=== PATIENT | female | born 1980 | race Two or more races ===

== ENCOUNTER 2019-10-20 21:37 | Inpatient (IN) | payer SELFPAY ==
[~2019-10-20] VITALS: Ht 158.8 cm; Wt 86.3 kg
[2019-10-20] MEDS ORDERED: IPRATRPIUM/ALBUTEROL 0.5/2.5MG 3 ML NEBU. NEB ONE (22:15)
[2019-10-20 22:20] LABS: BASO % 0 % (0-3); EOS % 0 % (0-3); HEMATOCRIT 37.8 % (36.0-47.0); LYMPH # 0.7 x10^3/uL (1.0-4.8); LYMPH % 12 % (24-48); MEAN CORPUSCULAR HEMOGLOBIN 31 pg (25-35); MEAN CORPUSCULAR HGB CONC 34 g/dL (31-37); MEAN CORPUSCULAR VOLUME 90 fL (79-100); MONO # 0.6 x10^3/uL (0.0-1.1); MONO % 9 % (0-9); NEUT # 4.8 x10^3/uL (1.8-7.7); NEUT % 79 % (31-73); PLATELET COUNT 172 x10^3/uL (140-400); RED BLOOD COUNT 4.21 x10^6/uL (3.50-5.40); RED CELL DISTRIBUTION WIDTH 13.2 % (11.5-14.5); WHITE BLOOD COUNT 6.1 x10^3/uL (4.0-11.0)
[2019-10-20 22:29] LABS: CALCIUM 8.4 mg/dL (8.5-10.1); CREATININE 0.8 mg/dL (0.6-1.0); GFR 80.7; POTASSIUM 3.5 mmol/L (3.5-5.1)
[2019-10-20 22:30] LABS: BILIRUBIN,URINE NEGATIVE (NEG); CLARITY,URINE CLEAR; COLOR,URINE YELLOW; NITRITE,URINE NEGATIVE (NEG); PROTEIN,URINE 30 mg/dL (NEG-TRACE)
[2019-10-20] MEDS ORDERED: ACETAMINOPHEN 500 MG TABLET PO ONE (22:30)
[2019-10-20 22:33] LABS: ALBUMIN 2.9 g/dL (3.4-5.0); ALBUMIN/GLOBULIN RATIO 0.7 (1.0-1.7); TOTAL BILIRUBIN 0.3 mg/dL (0.2-1.0); TOTAL PROTEIN 7.2 g/dL (6.4-8.2)
[2019-10-20 22:40] LABS: RBC,URINE >40 /HPF (0-2)
[2019-10-20 22:41] LABS: BACTERIA,URINE MODERATE /HPF (0-FEW); SQUAMOUS EPITHELIAL CELL,UR MANY /LPF
--- NOTE | 2019-10-20 23:31 | PHYS DOC ---
Past Medical History Past Medical History: No Pertinent History Additional Past Medical Histor: DENIES ANY MEDICAL HX Smoking Status: Never Smoker Alcohol Use: None General Adult EDM: Chief Complaint: SHORTNESS OF BREATH HPI: HPI: Patient is a 39 year old female who presents with report of shortness of breath. Patient was just recently diagnosed with COVID-19. Patient indicates that she has been developing worsening shortness of breath and upon arrival, patient's oxygen saturation noted to be 89-90%. Patient is complaining shortness of breath. Patient indicates that symptoms have been present for 2 weeks now. Sh e states that she continues to run fever and symptoms are only getting worse.[] Review of Systems: Review of Systems: Constitutional: Complains of fever and chills. [] Respiratory: Complains of cough and shortness of breath. [] Cardiovascular: Denies chest pain or edema. [] GI: Denies abdominal pain, nausea, vomiting or diarrhea. [] Musculoskeletal: [place] of body aches/pain. [] Integument: Denies rash. [] Neurologic: Denies headache, focal weakness or sensory changes. [] Heart Score: Risk Factors: Risk Factors: DM, Current or recent (<one month) smoker, HTN, HLP, family history of CAD, obesity. Risk Scores: Score 0 - 3: 2.5% MACE over next 6 weeks - Discharge Home Score 4 - 6: 20.3% MACE over next 6 weeks - Admit for Clinical Observation Score 7 - 10: 72.7% MACE over next 6 weeks - Early Invasive Strategies Current Medications: Current Medications Medications (Trade) Dose Ordered Sig/[facility] Start Time Stop Time Status Last Admin Dose Admin Acetaminophen (Tylenol) 1,000 mg 1X ONCE 10/20/19 22:30 10/20/19 22:31 DC Albuterol/ Ipratropium (Duoneb) 3 ml 1X ONCE 10/20/19 22:15 10/20/19 22:16 DC Allergies: Allergies: Allergies Coded Allergies Type Severity Reaction Last Updated Verified Unable to Assess 10/20/19 No Physical Exam: PE: Constitutional: Well developed, well nourished, no acute distress, non-toxic appearance. [] HENT: Normocephalic, atraumatic, bilateral external ears normal, oropharynx moist, no oral exudates, nose normal. [] Eyes: PERRLA, EOMI, conjunctiva normal, no discharge. [] Neck: Normal range of motion, no tenderness, supple. [] Cardiovascular: Regular rate and rhythm[] Lungs & Thorax: Bilateral breath sounds clear to auscultation [] Abdomen: Bowel sounds normal, soft, no tenderness. [] Skin: Warm, dry, no erythema, no rash. [] Extremities: No tenderness, no cyanosis, no clubbing, ROM intact. [] Neurologic: Alert and oriented X 3, no focal deficits noted. [] Current Patient Data: Labs: Laboratory Tests Test 10/20/19 22:05 10/20/19 22:22 10/20/19 22:26 White Blood Count 6.1 x10^3/uL (4.0-11.0) Red Blood Count 4.21 x10^6/uL (3.50-5.40) Hemoglobin 13.0 g/dL (12.0-15.5) Hematocrit 37.8 % (36.0-47.0) Mean Corpuscular Volume 90 fL (79-100) Mean Corpuscular Hemoglobin 31 pg (25-35) Mean Corpuscular Hemoglobin Concent 34 g/dL (31-37) Red Cell Distribution Width 13.2 % (11.5-14.5) Platelet Count 172 x10^3/uL (140-400) Neutrophils (%) (Auto) 79 % (31-73) H Lymphocytes (%) (Auto) 12 % (24-48) L Monocytes (%) (Auto) 9 % (0-9) Eosinophils (%) (Auto) 0 % (0-3) Basophils (%) (Auto) 0 % (0-3) Neutrophils # (Auto) 4.8 x10^3/uL (1.8-7.7) Lymphocytes # (Auto) 0.7 x10^3/uL (1.0-4.8) L Monocytes # (Auto) 0.6 x10^3/uL (0.0-1.1) Eosinophils # (Auto) 0.0 x10^3/uL (0.0-0.7) Basophils # (Auto) 0.0 x10^3/uL (0.0-0.2) Sodium Level 134 mmol/L (136-145) L Potassium Level 3.5 mmol/L (3.5-5.1) Chloride Level 100 mmol/L (98-107) Carbon Dioxide Level 24 mmol/L (21-32) Anion Gap 10 (6-14) Blood Urea Nitrogen 12 mg/dL (7-20) Creatinine 0.8 mg/dL (0.6-1.0) Estimated GFR (Cockcroft-Gault) 80.7 BUN/Creatinine Ratio 15 (6-20) Glucose Level 117 mg/dL (70-99) H Calcium Level 8.4 mg/dL (8.5-10.1) L Total Bilirubin 0.3 mg/dL (0.2-1.0) Aspartate Amino Transferase (AST) 93 U/L (15-37) H Alanine Aminotransferase (ALT) 111 U/L (14-59) H Alkaline Phosphatase 65 U/L (46-116) Troponin I Quantitative < 0.017 ng/mL (0.000-0.055) WR-Dlo-G-Type Natriuretic Peptide 34 pg/mL (0-124) Total Protein 7.2 g/dL (6.4-8.2) Albumin 2.9 g/dL (3.4-5.0) L Albumin/Globulin Ratio 0.7 (1.0-1.7) L Urine Collection Type Void Urine Color Yellow Urine Clarity Clear Urine pH 6.0 (<5.0-8.0) Urine Specific [place] 1.025 (1.000-1.030) Urine Protein 30 mg/dL (NEG-TRACE) Urine Glucose (UA) Negative mg/dL (NEG) Urine Ketones (Stick) Trace mg/dL (NEG) Urine Blood Large (NEG) Urine Nitrite Negative (NEG) Urine Bilirubin Negative (NEG) Urine Urobilinogen Dipstick 1.0 mg/dL (0.2 mg/dL) Urine Leukocyte Esterase Negative (NEG) Urine RBC >40 /HPF (0-2) Urine WBC 1-4 /HPF (0-4) Urine Squamous Epithelial Cells Many /LPF Urine Bacteria Moderate /HPF (0-FEW) Urine Mucus Slight /LPF POC Urine HCG, Qualitative Hcg negative (Negative) Laboratory Tests 10/20/19 22:05 Laboratory Tests 10/20/19 22:05 Vital Signs: Vital Signs Date Time Temp Pulse Resp B/P (MAP) Pulse Ox O2 Delivery O2 Flow Rate FiO2 10/20/19 22:23 102.3 78 24 104/56 (72) 94 Nasal Cannula 2.0 102.3 EKG: EKG: [] Radiology/Procedures: Radiology/Procedures: [] Impression: Chest x-ray demonstrates bilateral patchy infiltrates consistent with pneumonia Course & Med Decision Making: Course & Med Decision Making Pertinent Labs and Imaging studies reviewed. (See chart for details) [] Dragon Disclaimer: Dragon Disclaimer: This electronic medical record was generated, in whole or in part, using a voice recognition dictation system. COVID-19 Patient Risks: Age 65 or older: No Sign of co-morbidity: No Exp to person + for COVID: Yes Exp to PUI: Yes Travel from affected area: No Lower respiratory symptoms: Yes Fever: Yes Other: Yes (tested positive for COVID) PPE Use: Full PPE with N95 mask or PAPR: Yes Departure Departure Impression: Primary Impression: Pneumonia Qualified Codes: J18.9 - Pneumonia, unspecified organism Additional Impressions: Hypoxemia COVID-19 virus infection Disposition: ADMITTED INPATIENT Admitting Physician: STACY Condition: IMPROVED Referrals: UNKNOWN PCP NAME (PCP) BREANNA RAYMUNDO Jr. DO October 20, 2019 23:30
[2019-10-20] MEDS ORDERED: MORPHINE SULFATE 4 MG/ML VIAL. IV PRN (23:45)
[2019-10-20] MEDS ORDERED: ONDANSETRON PF 4 MG/2 ML VIAL. IV PRN (23:45)
[2019-10-21] VITALS (7 sets, daily range): BP systolic 94–130; BP diastolic 44–60
--- NOTE | 2019-10-21 02:34 | RAD ---
PORTABLE CHEST 1V Clinical Indication: Shortness of breath Comparison: None. Findings: The cardiomediastinal silhouette is normal. There are right lower lung airspace opacities. There are left lower lung airspace opacities. There is no pneumothorax. No pleural effusion is appreciated. No acute bone abnormality. IMPRESSION: There are bibasilar airspace opacities that may be pneumonia or atelectasis. Electronically signed by: Rachid Zazueta MD (10/21/2019 2:31 AM) [id number]
[2019-10-21] MEDS: ACETAMINOPHEN 325 MG TABLET. PO PRN ×5 (03:53→20:01)
[2019-10-21 04:48] LABS: BASO % 0 % (0-3); EOS % 0 % (0-3); HEMATOCRIT 38.2 % (36.0-47.0); HEMOGLOBIN 12.7 g/dL (12.0-15.5); LYMPH # 0.9 x10^3/uL (1.0-4.8); LYMPH % 13 % (24-48); MEAN CORPUSCULAR HEMOGLOBIN 30 pg (25-35); MEAN CORPUSCULAR HGB CONC 33 g/dL (31-37); MEAN CORPUSCULAR VOLUME 90 fL (79-100); MONO # 0.6 x10^3/uL (0.0-1.1); MONO % 10 % (0-9); NEUT # 5.1 x10^3/uL (1.8-7.7); NEUT % 77 % (31-73); PLATELET COUNT 171 x10^3/uL (140-400); RED BLOOD COUNT 4.25 x10^6/uL (3.50-5.40); RED CELL DISTRIBUTION WIDTH 13.2 % (11.5-14.5); WHITE BLOOD COUNT 6.7 x10^3/uL (4.0-11.0)
[2019-10-21 05:03] LABS: CREATININE 0.8 mg/dL (0.6-1.0); GFR 80.7; POTASSIUM 3.6 mmol/L (3.5-5.1)
[2019-10-21] MEDS ORDERED: IPRATRPIUM/ALBUTEROL 0.5/2.5MG 3 ML NEBU. NEB PRN (07:15)
[2019-10-21] MEDS ORDERED: ALBUTEROL SULFATE 2.5 MG/3 ML NEBU. NEB PRN (07:15)
[2019-10-21] MEDS ORDERED: IPRATRPIUM/ALBUTEROL 0.5/2.5MG 3 ML NEBU. NEB SCH (08:00)
--- NOTE | 2019-10-21 08:05 | EKG ---
[facility] [address] [place] [address] Test Date: 2019-10-20 Test Time: 22:16:57 Pat Name: SURJIT MOLINA Department: Room: 2 Gender: F Furniture Upholsterer: : 1980 Requested By: BREANNA RAYMUNDO Order Number: [id number] Reading MD: Jermain Blsa Measurements Intervals [place] Rate: 81 P: 4 MS: 136 QRS: -13 QRSD: 82 T: 4 QT: 346 QTc: 407 Interpretive Statements SINUS RHYTHM LEFTWARD AXIS T ABNORMALITY IN ANTERIOR LEADS ABNORMAL ECG RI6.01 No previous ECG available for comparison Electronically Signed On 10-21-2019 9:00:25 CDT by Jermain Blas
[2019-10-21] MEDS ORDERED: POTASSIUM CHLORIDE 20 MEQ TABLET.ER. PO ONE (09:15)
[2019-10-21] MEDS ORDERED: traMADol 50 MG TABLET PO PRN (09:15)
--- NOTE | 2019-10-21 09:18 | PDOC1 ---
History and Physical Date of Admission Date of Admission DATE: 10/21/19 TIME: 09:15 Source Source: Chart review, Patient History of Present Illness History of Present Illness Renetta Montague is a 39 year old female who presents with report of shortness of breath, and was previously diagnosed with COVID-19. Patient indicates that she has been developing worsening shortness of breath and upon arrival, cough and dyspena and weakness and myalgia she was hypoxic in the ER and has been on supplemental oxygen overnight Patient is complaining shortness of breath. Patient indicates that symptoms have been present for 2 weeks now. Social History Smoke: No ALCOHOL: none Drugs: None Current Problem List Problem List Problems Medical Problems: (1) COVID-19 virus infection Status: Acute (2) Hypoxemia Status: Acute (3) Pneumonia Status: Acute Current Medications Current Medications Current Medications Albuterol/ Ipratropium (Duoneb) 3 ml 1X ONCE NEB ; Start 10/20/19 at 22:15; Stop 10/20/19 at 22:16; Status DC Acetaminophen (Tylenol) 1,000 mg 1X ONCE PO ; Start 10/20/19 at 22:30; Stop 10/20/19 at 22:31; Status DC Ondansetron HCl (Zofran) 4 mg PRN Q8HRS PRN IV NAUSEA/VOMITING; Start 10/20/19 at 23:45; Stop 10/21/19 at 23:44 Morphine Sulfate (Morphine Sulfate) 4 mg PRN Q2HR PRN IV PAIN; Start 10/20/19 at 23:45; Stop 10/21/19 at 23:44 Acetaminophen (Tylenol) 650 mg PRN Q4HRS PRN PO FEVER > 100.3'F Last administered on 10/21/19at 08:23; Start 10/20/19 at 23:45; Stop 10/21/19 at 23:44 Albuterol/ Ipratropium (Duoneb) 3 ml RTQID NEB ; Start 10/21/19 at 08:00; Stop 10/21/19 at 07:13; Status DC Albuterol/ Ipratropium (Duoneb) 3 ml PRN QID PRN NEB SHORTNESS OF BREATH; Start 10/21/19 at 07:15; Stop 10/22/19 at 07:14; Status UNV Albuterol Sulfate (Ventolin Neb Soln) 2.5 mg PRN QID PRN NEB SHORTNESS OF BREATH; Start 10/21/19 at 07:15 Active Scripts Active Reported No Known Medications Prior To Admisstion (Info) Each 1 Each 1X Allergies Allergies: Coded Allergies: Unable to Assess (Unverified , 10/20/19) ROS General: YES: Chills, Fatigue, Malaise, Appetite PSYCHOLOGICAL ROS: YES: Sleep disturbances; No: Anxiety, Behavioral Disorder, Concentration difficultie, Decreased libido, Depression, Disorientation, Hallucinations, Mood Swings, Obsessive thoughts, Physical abuse, Sexual abuse, Suicidal ideation, Other Eyes: No Blurry vision, No Decreased vision, No Double vision, No Dry eyes, No Excessive tearing, No Eye Pain, No Itchy Eyes, No Loss of vision, No Photophobia, No Scotomata, No Uses contacts, No Uses glasses, No Other HEENT: YES: Heacaches; No: Visual Changes, Hearing change, Nasal congestion, Nasal discharge, Oral lesions, Sinus pain, Sore Throat, Epistaxis, Sneezing, Snoring, Tinnitus, Vertigo, Vocal changes, Other Cardiovascular: No Chest Pain, No Palpitations, No Orthopnea, No Paroxysmal Noc. Dyspnea, No Edema, No Lt Headedness, No Other Gastrointestinal: Yes Nausea, Yes Abdominal Pain; No Vomiting, No Diarrhea, No Constipation, No Melena, No Hematochezia, No Other Genitourinary: No Frequency, No Incontinence, No Hematuria, No Retention, No Discharge, No Urgency, No Pain, No Flank Pain, No Other, No , No , No , No , No , No , No Musculoskeletal: Yes Gait Disturbance, Yes Muscular Weakness, Yes Pain In:; No Joint Pain, No Joint Stiffness, No Joint Swelling, No Muscle Pain, No Swelling In:, No Other Neurological: No Behavorial Changes, No Bowel/Bladder ControlChng, No Confusion, No Dizziness, No Gait Disturbance, No Headaches, No Impaired Coord/balance, No Memory Loss, No Numbness/Tingling, No Seizures, No Speech Problems, No Tremors, No Visual Changes, No Weakness, No Other Skin: Yes Dry Skin; No Eczema, No Hair Changes, No Lumps, No Mole Changes, No Mottling, No Nail Changes, No Pruritus, No Rash, No Skin Lesion Changes, No Other, No Acne Physical Exam General: Alert, Oriented X3, Cooperative, mild distress HEENT: Atraumatic, PERRLA, EOMI, Mucous membr. moist/pink Lungs: Normal air movement Abdomen: Normal bowel sounds, Soft Extremities: No edema Skin: No rashes, No breakdown Neuro: Normal tone Psych/Mental Status: Mood NL, Other (lethargic, ) Vitals Vitals Vital Signs Date Time Temp Pulse Resp B/P (MAP) Pulse Ox O2 Delivery O2 Flow Rate FiO2 10/21/19 08:03 96 Nasal Cannula 2.0 10/21/19 03:50 100.5 72 20 107/60 (76) 100.5 Labs Labs Laboratory Tests Test 10/20/19 22:05 10/20/19 22:22 10/20/19 22:26 10/21/19 04:20 White Blood Count 6.1 x10^3/uL (4.0-11.0) 6.7 x10^3/uL (4.0-11.0) Red Blood Count 4.21 x10^6/uL (3.50-5.40) 4.25 x10^6/uL (3.50-5.40) Hemoglobin 13.0 g/dL (12.0-15.5) 12.7 g/dL (12.0-15.5) Hematocrit 37.8 % (36.0-47.0) 38.2 % (36.0-47.0) Mean Corpuscular Volume 90 fL (79-100) 90 fL (79-100) Mean Corpuscular Hemoglobin 31 pg (25-35) 30 pg (25-35) Mean Corpuscular Hemoglobin Concent 34 g/dL (31-37) 33 g/dL (31-37) Red Cell Distribution Width 13.2 % (11.5-14.5) 13.2 % (11.5-14.5) Platelet Count 172 x10^3/uL (140-400) 171 x10^3/uL (140-400) Neutrophils (%) (Auto) 79 % (31-73) 77 % (31-73) Lymphocytes (%) (Auto) 12 % (24-48) 13 % (24-48) Monocytes (%) (Auto) 9 % (0-9) 10 % (0-9) Eosinophils (%) (Auto) 0 % (0-3) 0 % (0-3) Basophils (%) (Auto) 0 % (0-3) 0 % (0-3) Neutrophils # (Auto) 4.8 x10^3/uL (1.8-7.7) 5.1 x10^3/uL (1.8-7.7) Lymphocytes # (Auto) 0.7 x10^3/uL (1.0-4.8) 0.9 x10^3/uL (1.0-4.8) Monocytes # (Auto) 0.6 x10^3/uL (0.0-1.1) 0.6 x10^3/uL (0.0-1.1) Eosinophils # (Auto) 0.0 x10^3/uL (0.0-0.7) 0.0 x10^3/uL (0.0-0.7) Basophils # (Auto) 0.0 x10^3/uL (0.0-0.2) 0.0 x10^3/uL (0.0-0.2) Sodium Level 134 mmol/L (136-145) 135 mmol/L (136-145) Potassium Level 3.5 mmol/L (3.5-5.1) 3.6 mmol/L (3.5-5.1) Chloride Level 100 mmol/L (98-107) 100 mmol/L (98-107) Carbon Dioxide Level 24 mmol/L (21-32) 26 mmol/L (21-32) Anion Gap 10 (6-14) 9 (6-14) Blood Urea Nitrogen 12 mg/dL (7-20) 10 mg/dL (7-20) Creatinine 0.8 mg/dL (0.6-1.0) 0.8 mg/dL (0.6-1.0) Estimated GFR (Cockcroft-Gault) 80.7 80.7 BUN/Creatinine Ratio 15 (6-20) Glucose Level 117 mg/dL (70-99) 99 mg/dL (70-99) Calcium Level 8.4 mg/dL (8.5-10.1) 8.0 mg/dL (8.5-10.1) Total Bilirubin 0.3 mg/dL (0.2-1.0) Aspartate Amino Transf (AST/SGOT) 93 U/L (15-37) Alanine Aminotransferase (ALT/SGPT) 111 U/L (14-59) Alkaline Phosphatase 65 U/L (46-116) Troponin I Quantitative < 0.017 ng/mL (0.000-0.055) QF-Qkx-R-Type Natriuretic Peptide 34 pg/mL (0-124) Total Protein 7.2 g/dL (6.4-8.2) Albumin 2.9 g/dL (3.4-5.0) Albumin/Globulin Ratio 0.7 (1.0-1.7) Urine Collection Type Void Urine Color Yellow Urine Clarity Clear Urine pH 6.0 (<5.0-8.0) Urine Specific [place] 1.025 (1.000-1.030) Urine Protein 30 mg/dL (NEG-TRACE) Urine Glucose (UA) Negative mg/dL (NEG) Urine Ketones (Stick) Trace mg/dL (NEG) Urine Blood Large (NEG) Urine Nitrite Negative (NEG) Urine Bilirubin Negative (NEG) Urine Urobilinogen Dipstick 1.0 mg/dL (0.2 mg/dL) Urine Leukocyte Esterase Negative (NEG) Urine RBC >40 /HPF (0-2) Urine WBC 1-4 /HPF (0-4) Urine Squamous Epithelial Cells Many /LPF Urine Bacteria Moderate /HPF (0-FEW) Urine Mucus Slight /LPF Bedside Urine HCG, Qualitative Hcg negative (Negative) Laboratory Tests Test 10/20/19 22:05 10/20/19 22:22 10/20/19 22:26 10/21/19 04:20 White Blood Count 6.1 x10^3/uL (4.0-11.0) 6.7 x10^3/uL (4.0-11.0) Red Blood Count 4.21 x10^6/uL (3.50-5.40) 4.25 x10^6/uL (3.50-5.40) Hemoglobin 13.0 g/dL (12.0-15.5) 12.7 g/dL (12.0-15.5) Hematocrit 37.8 % (36.0-47.0) 38.2 % (36.0-47.0) Mean Corpuscular Volume 90 fL (79-100) 90 fL (79-100) Mean Corpuscular Hemoglobin 31 pg (25-35) 30 pg (25-35) Mean Corpuscular Hemoglobin Concent 34 g/dL (31-37) 33 g/dL (31-37) Red Cell Distribution Width 13.2 % (11.5-14.5) 13.2 % (11.5-14.5) Platelet Count 172 x10^3/uL (140-400) 171 x10^3/uL (140-400) Neutrophils (%) (Auto) 79 % (31-73) 77 % (31-73) Lymphocytes (%) (Auto) 12 % (24-48) 13 % (24-48) Monocytes (%) (Auto) 9 % (0-9) 10 % (0-9) Eosinophils (%) (Auto) 0 % (0-3) 0 % (0-3) Basophils (%) (Auto) 0 % (0-3) 0 % (0-3) Neutrophils # (Auto) 4.8 x10^3/uL (1.8-7.7) 5.1 x10^3/uL (1.8-7.7) Lymphocytes # (Auto) 0.7 x10^3/uL (1.0-4.8) 0.9 x10^3/uL (1.0-4.8) Monocytes # (Auto) 0.6 x10^3/uL (0.0-1.1) 0.6 x10^3/uL (0.0-1.1) Eosinophils # (Auto) 0.0 x10^3/uL (0.0-0.7) 0.0 x10^3/uL (0.0-0.7) Basophils # (Auto) 0.0 x10^3/uL (0.0-0.2) 0.0 x10^3/uL (0.0-0.2) Sodium Level 134 mmol/L (136-145) 135 mmol/L (136-145) Potassium Level 3.5 mmol/L (3.5-5.1) 3.6 mmol/L (3.5-5.1) Chloride Level 100 mmol/L (98-107) 100 mmol/L (98-107) Carbon Dioxide Level 24 mmol/L (21-32) 26 mmol/L (21-32) Anion Gap 10 (6-14) 9 (6-14) Blood Urea Nitrogen 12 mg/dL (7-20) 10 mg/dL (7-20) Creatinine 0.8 mg/dL (0.6-1.0) 0.8 mg/dL (0.6-1.0) Estimated GFR (Cockcroft-Gault) 80.7 80.7 BUN/Creatinine Ratio 15 (6-20) Glucose Level 117 mg/dL (70-99) 99 mg/dL (70-99) Calcium Level 8.4 mg/dL (8.5-10.1) 8.0 mg/dL (8.5-10.1) Total Bilirubin 0.3 mg/dL (0.2-1.0) Aspartate Amino Transf (AST/SGOT) 93 U/L (15-37) Alanine Aminotransferase (ALT/SGPT) 111 U/L (14-59) Alkaline Phosphatase 65 U/L (46-116) Troponin I Quantitative < 0.017 ng/mL (0.000-0.055) UZ-Adq-Q-Type Natriuretic Peptide 34 pg/mL (0-124) Total Protein 7.2 g/dL (6.4-8.2) Albumin 2.9 g/dL (3.4-5.0) Albumin/Globulin Ratio 0.7 (1.0-1.7) Urine Collection Type Void Urine Color Yellow Urine Clarity Clear Urine pH 6.0 (<5.0-8.0) Urine Specific [place] 1.025 (1.000-1.030) Urine Protein 30 mg/dL (NEG-TRACE) Urine Glucose (UA) Negative mg/dL (NEG) Urine Ketones (Stick) Trace mg/dL (NEG) Urine Blood Large (NEG) Urine Nitrite Negative (NEG) Urine Bilirubin Negative (NEG) Urine Urobilinogen Dipstick 1.0 mg/dL (0.2 mg/dL) Urine Leukocyte Esterase Negative (NEG) Urine RBC >40 /HPF (0-2) Urine WBC 1-4 /HPF (0-4) Urine Squamous Epithelial Cells Many /LPF Urine Bacteria Moderate /HPF (0-FEW) Urine Mucus Slight /LPF Bedside Urine HCG, Qualitative Hcg negative (Negative) VTE Prophylaxis Ordered VTE Prophylaxis Devices: No VTE Pharmacological Prophylaxi: Yes Assessment/Plan Assessment/Plan sepsis confirmed previously COVID -19 infection obese, BMI 33 transaminitis moderate malnutrition from acute illness NADER DUMONT MD October 21, 2019 09:18
--- NOTE | 2019-10-21 11:20 | NUR ---
SS following for discharge planning. SS reviewed pt chart and discussed with pt RN. Pt is self pay pt. Pt is from home and is currently requiring oxygen. Pt is COVID19 positive. SS will continue to follow for discharge planning.
--- NOTE | 2019-10-21 11:25 | CONS ---
DATE OF CONSULTATION: 10/21/2019 PULMONARY CONSULTATION ATTENDING PHYSICIAN: Bobby Brito MD REASON FOR CONSULTATION: COVID pneumonia. HISTORY OF PRESENT ILLNESS: The patient is a 39-year-old who presented to the hospital with complaint of shortness of breath. She was last week diagnosed with COVID-19. She had a cough with some weakness and myalgias. She was hypoxic in the Emergency Room, placed on 2 liters of oxygen, saturations are now 96%. T-max of 100.5. She does not appear to be in any obvious respiratory distress. PAST MEDICAL HISTORY: Nonsmoker. No history of asthma. PAST SURGICAL HISTORY: None. ALLERGIES: None reported. MEDICATIONS: Reviewed as listed in the MRAD. REVIEW OF SYSTEMS: Unable to obtain due to language barrier. SOCIAL HISTORY: Nonsmoker. PHYSICAL EXAMINATION: VITAL SIGNS: Reviewed. T-max 100.5, pulse ox 95% on 2 liters. GENERAL: Visual exam done due to COVID-19. No obvious respiratory distress. No skin rash. LABORATORY DATA: Reviewed. White cell count 6.7, hemoglobin 12.7, platelets are 171. IMPRESSION: 1. Acute hypoxic respiratory failure secondary to COVID-19 pneumonia. 2. COVID-19 positive. 3. Abnormal chest x-ray with basilar infiltrates consistent with COVID pneumonia. RECOMMENDATIONS: 1. Continue with present oxygen. 2. Add empiric antibiotic. 3. DVT prophylaxis. 4. PRN albuterol. 5. Follow the response to treatment. ELVER TEJADA MD DR: JYOTI/junie JOB#: [id number] / [id number]
[2019-10-21] MEDS ORDERED: IV NORMAL SALINE 1000ML BAG 1,000 ML IV ONE (11:30)
[2019-10-21] MEDS: cefTRIAXone IV Push 1 GM VIAL. IVP SCH (12:00)
[2019-10-21] MEDS: ASCORBIC ACID 500 MG TABLET PO SCH (12:11)
[2019-10-21] MEDS: ZINC SULFATE 220 MG CAPSULE. PO SCH (12:11)
[2019-10-21] MEDS: guaiFENesin/CODEINE 100mg/10mg 5 ML LIQUID PO PRN ×2 (12:26→17:55)
[2019-10-21] MEDS: ENOXAPARIN 40 MG/0.4 ML SYRINGE. SQ SCH (16:02)
[2019-10-21] MEDS: guaiFENesin DM 600/30MG 1 TAB TAB.ER.12H PO SCH (20:01)
[2019-10-22] MEDS: ACETAMINOPHEN 325 MG TABLET. PO PRN ×5 (00:17→22:40)
[2019-10-22] MEDS ORDERED: LEVO75TA90 PO (00:31)
[2019-10-22 03:45] VITALS: BP 109/51
[2019-10-22] MEDS: LEVOTHYROXINE 75 MCG TABLET PO SCH (05:35)
[2019-10-22 07:00] VITALS: BP 101/48
[2019-10-22] MEDS: guaiFENesin/CODEINE 100mg/10mg 5 ML LIQUID PO PRN (08:23)
[2019-10-22] MEDS: ZINC SULFATE 220 MG CAPSULE. PO SCH (08:23)
[2019-10-22] MEDS: ASCORBIC ACID 500 MG TABLET PO SCH (08:23)
--- NOTE | 2019-10-22 08:24 | PDOC ---
PULMONARY PROGRESS NOTES Subjective Patient feels better, continued cough Vitals Vital Signs Date Time Temp Pulse Resp B/P (MAP) Pulse Ox O2 Delivery O2 Flow Rate FiO2 10/22/19 07:00 102.3 81 22 101/48 (65) 94 Nasal Cannula 2.0 102.3 ROS: No Nausea, No Chest Pain, No Abdominal Pain, No Increase Cough Lungs: Clear Cardiovascular: S1, S2 Abdomen: Soft Neuro Exam: Alert Extremities: No Edema Skin: Warm Labs Laboratory Tests Test 10/20/19 22:05 10/20/19 22:22 10/20/19 22:26 10/21/19 04:20 White Blood Count 6.1 x10^3/uL (4.0-11.0) 6.7 x10^3/uL (4.0-11.0) Red Blood Count 4.21 x10^6/uL (3.50-5.40) 4.25 x10^6/uL (3.50-5.40) Hemoglobin 13.0 g/dL (12.0-15.5) 12.7 g/dL (12.0-15.5) Hematocrit 37.8 % (36.0-47.0) 38.2 % (36.0-47.0) Mean Corpuscular Volume 90 fL (79-100) 90 fL (79-100) Mean Corpuscular Hemoglobin 31 pg (25-35) 30 pg (25-35) Mean Corpuscular Hemoglobin Concent 34 g/dL (31-37) 33 g/dL (31-37) Red Cell Distribution Width 13.2 % (11.5-14.5) 13.2 % (11.5-14.5) Platelet Count 172 x10^3/uL (140-400) 171 x10^3/uL (140-400) Neutrophils (%) (Auto) 79 % (31-73) 77 % (31-73) Lymphocytes (%) (Auto) 12 % (24-48) 13 % (24-48) Monocytes (%) (Auto) 9 % (0-9) 10 % (0-9) Eosinophils (%) (Auto) 0 % (0-3) 0 % (0-3) Basophils (%) (Auto) 0 % (0-3) 0 % (0-3) Neutrophils # (Auto) 4.8 x10^3/uL (1.8-7.7) 5.1 x10^3/uL (1.8-7.7) Lymphocytes # (Auto) 0.7 x10^3/uL (1.0-4.8) 0.9 x10^3/uL (1.0-4.8) Monocytes # (Auto) 0.6 x10^3/uL (0.0-1.1) 0.6 x10^3/uL (0.0-1.1) Eosinophils # (Auto) 0.0 x10^3/uL (0.0-0.7) 0.0 x10^3/uL (0.0-0.7) Basophils # (Auto) 0.0 x10^3/uL (0.0-0.2) 0.0 x10^3/uL (0.0-0.2) Sodium Level 134 mmol/L (136-145) 135 mmol/L (136-145) Potassium Level 3.5 mmol/L (3.5-5.1) 3.6 mmol/L (3.5-5.1) Chloride Level 100 mmol/L (98-107) 100 mmol/L (98-107) Carbon Dioxide Level 24 mmol/L (21-32) 26 mmol/L (21-32) Anion Gap 10 (6-14) 9 (6-14) Blood Urea Nitrogen 12 mg/dL (7-20) 10 mg/dL (7-20) Creatinine 0.8 mg/dL (0.6-1.0) 0.8 mg/dL (0.6-1.0) Estimated GFR (Cockcroft-Gault) 80.7 80.7 BUN/Creatinine Ratio 15 (6-20) Glucose Level 117 mg/dL (70-99) 99 mg/dL (70-99) Calcium Level 8.4 mg/dL (8.5-10.1) 8.0 mg/dL (8.5-10.1) Total Bilirubin 0.3 mg/dL (0.2-1.0) Aspartate Amino Transf (AST/SGOT) 93 U/L (15-37) Alanine Aminotransferase (ALT/SGPT) 111 U/L (14-59) Alkaline Phosphatase 65 U/L (46-116) Troponin I Quantitative < 0.017 ng/mL (0.000-0.055) KL-Tgq-U-Type Natriuretic Peptide 34 pg/mL (0-124) Total Protein 7.2 g/dL (6.4-8.2) Albumin 2.9 g/dL (3.4-5.0) Albumin/Globulin Ratio 0.7 (1.0-1.7) Urine Collection Type Void Urine Color Yellow Urine Clarity Clear Urine pH 6.0 (<5.0-8.0) Urine Specific [place] 1.025 (1.000-1.030) Urine Protein 30 mg/dL (NEG-TRACE) Urine Glucose (UA) Negative mg/dL (NEG) Urine Ketones (Stick) Trace mg/dL (NEG) Urine Blood Large (NEG) Urine Nitrite Negative (NEG) Urine Bilirubin Negative (NEG) Urine Urobilinogen Dipstick 1.0 mg/dL (0.2 mg/dL) Urine Leukocyte Esterase Negative (NEG) Urine RBC >40 /HPF (0-2) Urine WBC 1-4 /HPF (0-4) Urine Squamous Epithelial Cells Many /LPF Urine Bacteria Moderate /HPF (0-FEW) Urine Mucus Slight /LPF Bedside Urine HCG, Qualitative Hcg negative (Negative) Test 10/22/19 00:10 Lactic Acid Level 0.8 mmol/L (0.4-2.0) Laboratory Tests Test 10/22/19 00:10 Lactic Acid Level 0.8 mmol/L (0.4-2.0) Medications Active Scripts Medications Dose Route/Sig Max Daily Dose Days Date Category Synthroid (Levothyroxine Sodium) 75 Mcg Tablet 75 Mcg PO DAILYAC 10/22/19 Reported No Known Medications Prior To Admisstion (Info) Each 1 Each 1X 10/21/19 Reported Impression . IMPRESSION: 1. Acute hypoxic respiratory failure secondary to COVID-19 pneumonia. 2. COVID-19 positive. 3. Abnormal chest x-ray with basilar infiltrates consistent with COVID pneumonia. Plan . 1. Continue with present oxygen. 2. Add empiric antibiotic. 3. DVT prophylaxis. 4. PRN albuterol. 5. Follow the response to treatment. GABY OTERO MD October 22, 2019 08:24
[2019-10-22] MEDS: guaiFENesin DM 600/30MG 1 TAB TAB.ER.12H PO SCH ×2 (08:25→20:05)
[2019-10-22 10:43] VITALS: BP 101/45
--- NOTE | 2019-10-22 11:27 | PDOC ---
PROGRESS NOTES Chief Complaint Chief Complaint sepsis confirmed previously COVID -19 infection obese, BMI 33 transaminitis moderate malnutrition from acute illness History of Present Illness History of Present Illness leg pain, eye dryness diarrhea x2 still having severe symptoms of COVID 19 infection, cont hospitalzation and supportive care Vitals Vitals Vital Signs Date Time Temp Pulse Resp B/P (MAP) Pulse Ox O2 Delivery O2 Flow Rate FiO2 10/22/19 10:43 101.4 80 22 101/45 (63) 96 Nasal Cannula 2.0 101.4 Physical Exam General: Alert, Oriented X3, Cooperative, mild distress Abdomen: Normal bowel sounds, Soft Extremities: No edema Skin: No rashes, No breakdown Labs LABS Laboratory Tests Test 10/22/19 00:10 Lactic Acid Level 0.8 mmol/L (0.4-2.0) Assessment and Plan Assessmemt and Plan Problems Medical Problems: (1) COVID-19 virus infection Status: Acute (2) Hypoxemia Status: Acute (3) Pneumonia Status: Acute Comment Review of Relevant I have reviewed the following items harmeet (where applicable) has been applied. Labs Laboratory Tests Test 10/20/19 22:05 10/20/19 22:22 10/20/19 22:26 10/21/19 04:20 White Blood Count 6.1 x10^3/uL (4.0-11.0) 6.7 x10^3/uL (4.0-11.0) Red Blood Count 4.21 x10^6/uL (3.50-5.40) 4.25 x10^6/uL (3.50-5.40) Hemoglobin 13.0 g/dL (12.0-15.5) 12.7 g/dL (12.0-15.5) Hematocrit 37.8 % (36.0-47.0) 38.2 % (36.0-47.0) Mean Corpuscular Volume 90 fL (79-100) 90 fL (79-100) Mean Corpuscular Hemoglobin 31 pg (25-35) 30 pg (25-35) Mean Corpuscular Hemoglobin Concent 34 g/dL (31-37) 33 g/dL (31-37) Red Cell Distribution Width 13.2 % (11.5-14.5) 13.2 % (11.5-14.5) Platelet Count 172 x10^3/uL (140-400) 171 x10^3/uL (140-400) Neutrophils (%) (Auto) 79 % (31-73) 77 % (31-73) Lymphocytes (%) (Auto) 12 % (24-48) 13 % (24-48) Monocytes (%) (Auto) 9 % (0-9) 10 % (0-9) Eosinophils (%) (Auto) 0 % (0-3) 0 % (0-3) Basophils (%) (Auto) 0 % (0-3) 0 % (0-3) Neutrophils # (Auto) 4.8 x10^3/uL (1.8-7.7) 5.1 x10^3/uL (1.8-7.7) Lymphocytes # (Auto) 0.7 x10^3/uL (1.0-4.8) 0.9 x10^3/uL (1.0-4.8) Monocytes # (Auto) 0.6 x10^3/uL (0.0-1.1) 0.6 x10^3/uL (0.0-1.1) Eosinophils # (Auto) 0.0 x10^3/uL (0.0-0.7) 0.0 x10^3/uL (0.0-0.7) Basophils # (Auto) 0.0 x10^3/uL (0.0-0.2) 0.0 x10^3/uL (0.0-0.2) Sodium Level 134 mmol/L (136-145) 135 mmol/L (136-145) Potassium Level 3.5 mmol/L (3.5-5.1) 3.6 mmol/L (3.5-5.1) Chloride Level 100 mmol/L (98-107) 100 mmol/L (98-107) Carbon Dioxide Level 24 mmol/L (21-32) 26 mmol/L (21-32) Anion Gap 10 (6-14) 9 (6-14) Blood Urea Nitrogen 12 mg/dL (7-20) 10 mg/dL (7-20) Creatinine 0.8 mg/dL (0.6-1.0) 0.8 mg/dL (0.6-1.0) Estimated GFR (Cockcroft-Gault) 80.7 80.7 BUN/Creatinine Ratio 15 (6-20) Glucose Level 117 mg/dL (70-99) 99 mg/dL (70-99) Calcium Level 8.4 mg/dL (8.5-10.1) 8.0 mg/dL (8.5-10.1) Total Bilirubin 0.3 mg/dL (0.2-1.0) Aspartate Amino Transf (AST/SGOT) 93 U/L (15-37) Alanine Aminotransferase (ALT/SGPT) 111 U/L (14-59) Alkaline Phosphatase 65 U/L (46-116) Troponin I Quantitative < 0.017 ng/mL (0.000-0.055) WK-Cpq-U-Type Natriuretic Peptide 34 pg/mL (0-124) Total Protein 7.2 g/dL (6.4-8.2) Albumin 2.9 g/dL (3.4-5.0) Albumin/Globulin Ratio 0.7 (1.0-1.7) Urine Collection Type Void Urine Color Yellow Urine Clarity Clear Urine pH 6.0 (<5.0-8.0) Urine Specific [place] 1.025 (1.000-1.030) Urine Protein 30 mg/dL (NEG-TRACE) Urine Glucose (UA) Negative mg/dL (NEG) Urine Ketones (Stick) Trace mg/dL (NEG) Urine Blood Large (NEG) Urine Nitrite Negative (NEG) Urine Bilirubin Negative (NEG) Urine Urobilinogen Dipstick 1.0 mg/dL (0.2 mg/dL) Urine Leukocyte Esterase Negative (NEG) Urine RBC >40 /HPF (0-2) Urine WBC 1-4 /HPF (0-4) Urine Squamous Epithelial Cells Many /LPF Urine Bacteria Moderate /HPF (0-FEW) Urine Mucus Slight /LPF Bedside Urine HCG, Qualitative Hcg negative (Negative) Test 10/22/19 00:10 Lactic Acid Level 0.8 mmol/L (0.4-2.0) Laboratory Tests Test 10/22/19 00:10 Lactic Acid Level 0.8 mmol/L (0.4-2.0) Medications Current Medications Albuterol/ Ipratropium (Duoneb) 3 ml 1X ONCE NEB ; Start 10/20/19 at 22:15; Stop 10/20/19 at 22:16; Status DC Acetaminophen (Tylenol) 1,000 mg 1X ONCE PO ; Start 10/20/19 at 22:30; Stop 10/20/19 at 22:31; Status DC Ondansetron HCl (Zofran) 4 mg PRN Q8HRS PRN IV NAUSEA/VOMITING; Start 10/20/19 at 23:45; Stop 10/21/19 at 23:44; Status DC Morphine Sulfate (Morphine Sulfate) 4 mg PRN Q2HR PRN IV PAIN; Start 10/20/19 at 23:45; Stop 10/21/19 at 23:44; Status DC Acetaminophen (Tylenol) 650 mg PRN Q4HRS PRN PO FEVER > 100.3'F Last administered on 10/21/19at 20:01; Start 10/20/19 at 23:45; Stop 10/21/19 at 23:44; Status DC Albuterol/ Ipratropium (Duoneb) 3 ml RTQID NEB ; Start 10/21/19 at 08:00; Stop 10/21/19 at 07:13; Status DC Albuterol/ Ipratropium (Duoneb) 3 ml PRN QID PRN NEB SHORTNESS OF BREATH; Start 10/21/19 at 07:15; Stop 10/22/19 at 07:14; Status UNV Albuterol Sulfate (Ventolin Neb Soln) 2.5 mg PRN QID PRN NEB SHORTNESS OF BREATH; Start 10/21/19 at 07:15 Ascorbic Acid (Vitamin C) 500 mg DAILY PO Last administered on 10/22/19at 08:23; Start 10/21/19 at 10:00 Zinc Sulfate (Orazinc) 220 mg DAILY PO Last administered on 10/22/19at 08:23; Start 10/21/19 at 10:00 Enoxaparin Sodium (Lovenox Per Pharmacy Prophylaxis Dosing) 1 each PRN DAILY PRN MC SEE COMMENTS; Start 10/21/19 at 09:15 Potassium Chloride (Klor-Con) 20 meq 1X ONCE PO Last administered on 10/21/19at 12:12; Start 10/21/19 at 09:15; Stop 10/21/19 at 09:16; Status DC Enoxaparin Sodium (Lovenox 40mg Syringe) 40 mg Q24H SQ Last administered on 10/21/19at 16:02; Start 10/21/19 at 16:00 Guaifenesin/ Codeine Phosphate (Robitussin Ac) 5 ml PRN Q6HRS PRN PO COUGH Last administered on 10/22/19at 08:23; Start 10/21/19 at 09:15 Guaifenesin (MUCINEX ER with DM) 1 tab BID PO Last administered on 10/22/19at 08:25; Start 10/21/19 at 21:00 Tramadol HCl (Ultram) 50 mg PRN Q6HRS PRN PO MODERATE PAIN; Start 10/21/19 at 09:15 Ceftriaxone Sodium (Rocephin) 1 gm Q24H IVP Last administered on 10/21/19at 12:00; Start 10/21/19 at 12:00 Sodium Chloride 1,000 ml @ 125 mls/hr 1X ONCE IV Last administered on 10/21/19at 12:11; Start 10/21/19 at 11:30; Stop 10/21/19 at 19:29; Status DC Acetaminophen (Tylenol) 650 mg PRN Q4HRS PRN PO MILD PAIN/TEMP Last administered on 10/22/19at 08:23; Start 10/22/19 at 00:15 Levothyroxine Sodium (Synthroid) 75 mcg DAILY06 PO Last administered on 10/22/19at 05:35; Start 10/22/19 at 06:00 Oxycodone HCl (Roxicodone) 5 mg PRN Q6HRS PRN PO SEVERE PAIN; Start 10/22/19 at 11:30 Artificial Tears (Artificial Tears) 1 drop PRN Q15MIN PRN OU DRY EYE; Start 10/22/19 at 11:30 Sodium Chloride 1,000 ml @ 125 mls/hr 1X ONCE IV ; Start 10/22/19 at 11:30; Stop 10/22/19 at 19:29 Active Scripts Active Reported Synthroid (Levothyroxine Sodium) 75 Mcg Tablet 75 Mcg PO DAILYAC No Known Medications Prior To Admisstion (Info) Each 1 Each 1X Vitals/I & O Vital Sign - Last 24 Hours 10/21/19 10/21/19 10/21/19 10/21/19 15:00 19:55 20:00 23:31 Temp 100.5 102.2 102.8 100.5 102.2 102.8 Pulse 69 89 79 Resp 16 24 B/P (MAP) 112/58 (76) 94/44 (61) 102/54 (70) Pulse Ox 95 94 96 O2 Delivery Nasal Cannula Nasal Cannula Nasal Cannula Nasal Cannula O2 Flow Rate 2.0 2.0 2.0 2.0 10/22/19 10/22/19 10/22/19 10/22/19 03:45 07:00 08:20 10:43 Temp 99.9 102.3 101.4 99.9 102.3 101.4 Pulse 82 81 80 Resp 22 B/P (MAP) 109/51 (70) 101/48 (65) 101/45 (63) Pulse Ox 96 94 96 O2 Delivery Nasal Cannula Nasal Cannula Nasal Cannula Nasal Cannula O2 Flow Rate 2.0 2.0 2.0 2.0 Intake and Output 10/21/19 10/21/19 10/22/19 15:00 23:00 07:00 Intake Total 118 ml 100 ml 300 ml Output Total 200 ml 100 ml Balance -82 ml 100 ml 200 ml NADER DUMONT MD October 22, 2019 11:27
[2019-10-22] MEDS ORDERED: IV NORMAL SALINE 1000ML BAG 1,000 ML IV ONE (11:30)
[2019-10-22] MEDS: cefTRIAXone IV Push 1 GM VIAL. IVP SCH (11:55)
[2019-10-22] MEDS: oxyCODONE IR 5 MG TABLET PO PRN ×2 (11:56→18:20)
--- NOTE | 2019-10-22 12:56 | NUR ---
SS following up with discharge planning. SS discussed with pt RN. Pt is COVID19 positive. Pt not medically stable for discharge at this time. Pt is self pay. SS will continue to follow for discharge planning.
[2019-10-22 14:24] VITALS: BP 106/57
[2019-10-22] MEDS: POLYVINYL ALCOHOL 1.4% OPHTH SOLUTION 15ML BOTTLE. OU PRN ×2 (15:12→20:06)
[2019-10-22] MEDS: ENOXAPARIN 40 MG/0.4 ML SYRINGE. SQ SCH (16:38)
[2019-10-22 19:45] VITALS: BP 110/55
[2019-10-22] MEDS: LACTOBACILLUS RHAMNOSUS GG 1 CAPSULE. PO SCH (20:05)
[2019-10-22 23:05] VITALS: BP 112/57
[2019-10-23 03:20] VITALS: BP 105/50
[2019-10-23] MEDS: ACETAMINOPHEN 325 MG TABLET. PO PRN ×2 (04:35→16:00)
[2019-10-23] MEDS: guaiFENesin/CODEINE 100mg/10mg 5 ML LIQUID PO PRN (04:46)
[2019-10-23] MEDS: LEVOTHYROXINE 75 MCG TABLET PO SCH (06:00)
[2019-10-23 07:00] VITALS: BP 96/52
[2019-10-23] MEDS: ASCORBIC ACID 500 MG TABLET PO SCH (08:16)
[2019-10-23] MEDS: ZINC SULFATE 220 MG CAPSULE. PO SCH (08:16)
[2019-10-23] MEDS: LACTOBACILLUS RHAMNOSUS GG 1 CAPSULE. PO SCH ×2 (08:16→20:30)
[2019-10-23] MEDS: guaiFENesin DM 600/30MG 1 TAB TAB.ER.12H PO SCH ×2 (08:16→20:30)
[2019-10-23] MEDS: POTASSIUM CL 20MEQ D5-0.45NACL 1,000 ML IV SCH ×2 (09:54→20:28)
[2019-10-23] MEDS: VITAMIN B12,B9,B6 COMPLEX 1 TABLET. PO SCH (09:54)
[2019-10-23] MEDS: BENZONATATE 100 MG CAPSULE. PO SCH ×3 (09:54→20:30)
[2019-10-23] MEDS: oxyCODONE IR 5 MG TABLET PO PRN (09:55)
[2019-10-23 11:00] VITALS: BP 99/50
--- NOTE | 2019-10-23 11:55 | PDOC ---
PROGRESS NOTES Chief Complaint Chief Complaint sepsis confirmed previously COVID -19 infection obese, BMI 33 transaminitis moderate malnutrition from acute illness poor PO intake, nausea and anorexia, History of Present Illness History of Present Illness leg pain, eye dryness diarrhea x2 still having severe symptoms of COVID 19 infection, cont hospitalzation and supportive care poor po intake eye dryness, nausea cough, add jerel reveles, she is hoping to go home soon, she is nauseated, poor po intake Vitals Vitals Vital Signs Date Time Temp Pulse Resp B/P (MAP) Pulse Ox O2 Delivery O2 Flow Rate FiO2 10/23/19 10:55 Nasal Cannula 4.0 10/23/19 07:00 99.6 61 24 96/52 (67) 96 99.6 Physical Exam General: Alert, Oriented X3, Cooperative, mild distress Heart: No murmurs Lungs: Clear Abdomen: Normal bowel sounds, Soft Extremities: No edema Skin: No rashes, No breakdown Assessment and Plan Assessmemt and Plan Problems Medical Problems: (1) COVID-19 virus infection Status: Acute (2) Hypoxemia Status: Acute (3) Pneumonia Status: Acute Comment Review of Relevant I have reviewed the following items harmeet (where applicable) has been applied. Labs Laboratory Tests Test 10/22/19 00:10 Lactic Acid Level 0.8 mmol/L (0.4-2.0) Microbiology 10/22/19 Blood Culture - Preliminary, Resulted NO GROWTH AFTER 1 DAY 10/20/19 Urine Culture - Final, Complete 10/20/19 Urine Culture Result 1 (KRISTA) - Final, Complete Medications Current Medications Albuterol/ Ipratropium (Duoneb) 3 ml 1X ONCE NEB ; Start 10/20/19 at 22:15; Stop 10/20/19 at 22:16; Status DC Acetaminophen (Tylenol) 1,000 mg 1X ONCE PO ; Start 10/20/19 at 22:30; Stop 10/20/19 at 22:31; Status DC Ondansetron HCl (Zofran) 4 mg PRN Q8HRS PRN IV NAUSEA/VOMITING; Start 10/20/19 at 23:45; Stop 10/21/19 at 23:44; Status DC Morphine Sulfate (Morphine Sulfate) 4 mg PRN Q2HR PRN IV PAIN; Start 10/20/19 at 23:45; Stop 10/21/19 at 23:44; Status DC Acetaminophen (Tylenol) 650 mg PRN Q4HRS PRN PO FEVER > 100.3'F Last administered on 10/21/19at 20:01; Start 10/20/19 at 23:45; Stop 10/21/19 at 23:44; Status DC Albuterol/ Ipratropium (Duoneb) 3 ml RTQID NEB ; Start 10/21/19 at 08:00; Stop 10/21/19 at 07:13; Status DC Albuterol/ Ipratropium (Duoneb) 3 ml PRN QID PRN NEB SHORTNESS OF BREATH; Start 10/21/19 at 07:15; Stop 10/22/19 at 07:14; Status UNV Albuterol Sulfate (Ventolin Neb Soln) 2.5 mg PRN QID PRN NEB SHORTNESS OF BREATH; Start 10/21/19 at 07:15 Ascorbic Acid (Vitamin C) 500 mg DAILY PO Last administered on 10/23/19at 08:16; Start 10/21/19 at 10:00 Zinc Sulfate (Orazinc) 220 mg DAILY PO Last administered on 10/23/19at 08:16; Start 10/21/19 at 10:00 Enoxaparin Sodium (Lovenox Per Pharmacy Prophylaxis Dosing) 1 each PRN DAILY PRN MC SEE COMMENTS; Start 10/21/19 at 09:15 Potassium Chloride (Klor-Con) 20 meq 1X ONCE PO Last administered on 10/21/19at 12:12; Start 10/21/19 at 09:15; Stop 10/21/19 at 09:16; Status DC Enoxaparin Sodium (Lovenox 40mg Syringe) 40 mg Q24H SQ Last administered on 10/22/19at 16:38; Start 10/21/19 at 16:00 Guaifenesin/ Codeine Phosphate (Robitussin Ac) 5 ml PRN Q6HRS PRN PO COUGH Last administered on 10/23/19at 04:46; Start 10/21/19 at 09:15 Guaifenesin (MUCINEX ER with DM) 1 tab BID PO Last administered on 10/23/19at 08:16; Start 10/21/19 at 21:00 Tramadol HCl (Ultram) 50 mg PRN Q6HRS PRN PO MODERATE PAIN; Start 10/21/19 at 09:15 Ceftriaxone Sodium (Rocephin) 1 gm Q24H IVP Last administered on 10/22/19 11:55; Start 10/21/19 at 12:00 Sodium Chloride 1,000 ml @ 125 mls/hr 1X ONCE IV Last administered on 10/21/19 12:11; Start 10/21/19 at 11:30; Stop 10/21/19 at 19:29; Status DC Acetaminophen (Tylenol) 650 mg PRN Q4HRS PRN PO MILD PAIN/TEMP Last administered on 10/23/19 04:35; Start 10/22/19 at 00:15 Levothyroxine Sodium (Synthroid) 75 mcg DAILY06 PO Last administered on 10/23/19 06:00; Start 10/22/19 at 06:00 Oxycodone HCl (Roxicodone) 5 mg PRN Q6HRS PRN PO SEVERE PAIN Last administered on 10/23/19 09:55; Start 10/22/19 at 11:30 Artificial Tears (Artificial Tears) 1 drop PRN Q15MIN PRN OU DRY EYE Last administered on 10/22/19 20:06; Start 10/22/19 at 11:30 Sodium Chloride 1,000 ml @ 125 mls/hr 1X ONCE IV Last administered on 10/22/19 11:54; Start 10/22/19 at 11:30; Stop 10/22/19 at 19:29; Status DC Lactobacillus Rhamnosus (Culturelle) 1 cap BID PO Last administered on 10/23/19 08:16; Start 10/22/19 at 21:00 Potassium Chloride/Dextrose/ Sod Cl 1,000 ml @ 100 mls/hr Q10H IV Last administered on 10/23/19 09:54; Start 10/23/19 at 08:45 Benzonatate (Tessalon Perle) 100 mg [id number] PO Last administered on 10/23/19 09:54; Start 10/23/19 at 09:15 Vitamin B Complex (Folbic Tablet) 1 tab DAILY PO Last administered on 10/23/19 09:54; Start 10/23/19 at 09:30 Active Scripts Active Reported Synthroid (Levothyroxine Sodium) 75 Mcg Tablet 75 Mcg PO DAILYAC No Known Medications Prior To Admisstion (Info) Each 1 Each 1X Vitals/I & O Vital Sign - Last 24 Hours 10/22/19 10/22/19 10/22/19 10/22/19 11:56 12:55 14:24 18:20 Temp 98.4 98.4 Pulse 63 Resp 22 23 B/P (MAP) 106/57 (73) Pulse Ox 96 O2 Delivery Nasal Cannula Nasal Cannula Nasal Cannula Nasal Cannula O2 Flow Rate 2.0 2.0 2.0 2.0 10/22/19 10/22/19 10/22/19 10/22/19 19:20 19:45 20:30 21:05 Temp 100.0 100.0 Pulse 72 Resp 22 B/P (MAP) 110/55 (73) Pulse Ox 94 O2 Delivery Nasal Cannula Nasal Cannula Nasal Cannula Nasal Cannula O2 Flow Rate 4.0 4.0 4.0 4.0 10/22/19 10/23/19 10/23/19 10/23/19 23:05 03:20 07:00 08:00 Temp 100.5 100.4 99.6 100.5 100.4 99.6 Pulse 72 63 61 Resp 22 24 24 B/P (MAP) 112/57 (75) 105/50 (68) 96/52 (67) Pulse Ox 92 91 96 O2 Delivery Nasal Cannula Nasal Cannula Nasal Cannula Nasal Cannula O2 Flow Rate 4.0 4.0 4.0 4.0 10/23/19 10/23/19 09:55 10:55 O2 Delivery Nasal Cannula Nasal Cannula O2 Flow Rate 4.0 4.0 Intake and Output 10/22/19 10/22/19 10/23/19 15:00 23:00 07:00 Intake Total 118 ml 800 ml 700 ml Output Total 0 ml Balance 118 ml 800 ml 700 ml NADER DUMONT MD October 23, 2019 11:55
[2019-10-23] MEDS: cefTRIAXone IV Push 1 GM VIAL. IVP SCH (12:13)
--- NOTE | 2019-10-23 14:49 | PDOC ---
PULMONARY PROGRESS NOTES Subjective Patient has some dry eyes, otherwise no increasing shortness of breath Vitals Vital Signs Date Time Temp Pulse Resp B/P (MAP) Pulse Ox O2 Delivery O2 Flow Rate FiO2 10/23/19 11:00 102.1 67 24 99/50 (66) 96 Nasal Cannula 4.0 102.1 ROS: No Nausea, No Chest Pain, No Abdominal Pain, No Increase Cough Lungs: Clear Cardiovascular: S1, S2 Abdomen: Soft Neuro Exam: Alert Extremities: No Edema Skin: Warm Labs Laboratory Tests Test 10/22/19 00:10 Lactic Acid Level 0.8 mmol/L (0.4-2.0) Medications Active Scripts Medications Dose Route/Sig Max Daily Dose Days Date Category Synthroid (Levothyroxine Sodium) 75 Mcg Tablet 75 Mcg PO DAILYAC 10/22/19 Reported No Known Medications Prior To Admisstion (Info) Each 1 Each 1X 10/21/19 Reported Impression . IMPRESSION: 1. Acute hypoxic respiratory failure secondary to COVID-19 pneumonia. 2. COVID-19 positive. 3. Abnormal chest x-ray with basilar infiltrates consistent with COVID pneumonia. Plan . Will continue current support possible discharge in the a.m. 1. Continue with present oxygen. 2. Add empiric antibiotic. 3. DVT prophylaxis. 4. PRN albuterol. 5. Follow the response to treatment. GABY OTERO MD October 23, 2019 14:49
[2019-10-23 15:00] VITALS: BP 106/46
--- NOTE | 2019-10-23 15:15 | NUR ---
SS following up with discharge planning. SS discussed with pt RN. Pt is COVID19 positive and requiring oxygen. Pt is self pay pt and may need oxygen at discharge. SS notified pt's RN that oxygen set up for concentrator and tubing is $115/month and pt would need to put debit or credit card on file with company in order to receive oxygen if needed at discharge. SS will continue to follow for discharge planning.
[2019-10-23] MEDS: ENOXAPARIN 40 MG/0.4 ML SYRINGE. SQ SCH (15:26)
[2019-10-23 19:00] VITALS: BP 103/58
[2019-10-23 23:00] VITALS: BP 107/56
[2019-10-24 03:00] VITALS: BP 105/57
[2019-10-24 04:53] LABS: BASO % 0 % (0-3); EOS % 0 % (0-3); HEMOGLOBIN 11.9 g/dL (12.0-15.5); LYMPH % 14 % (24-48); MEAN CORPUSCULAR HEMOGLOBIN 31 pg (25-35); MEAN CORPUSCULAR HGB CONC 34 g/dL (31-37); MEAN CORPUSCULAR VOLUME 90 fL (79-100); MONO # 0.6 x10^3/uL (0.0-1.1); MONO % 8 % (0-9); NEUT # 5.5 x10^3/uL (1.8-7.7); NEUT % 78 % (31-73); PLATELET COUNT 257 x10^3/uL (140-400); RED BLOOD COUNT 3.89 x10^6/uL (3.50-5.40); RED CELL DISTRIBUTION WIDTH 13.3 % (11.5-14.5); WHITE BLOOD COUNT 7.1 x10^3/uL (4.0-11.0)
[2019-10-24 05:07] LABS: ALBUMIN 2.2 g/dL (3.4-5.0); ALBUMIN/GLOBULIN RATIO 0.5 (1.0-1.7); CALCIUM 8.1 mg/dL (8.5-10.1); CREATININE 0.7 mg/dL (0.6-1.0); GFR 94.2; POTASSIUM 3.5 mmol/L (3.5-5.1); TOTAL BILIRUBIN 0.4 mg/dL (0.2-1.0); TOTAL PROTEIN 6.6 g/dL (6.4-8.2)
[2019-10-24] MEDS: LEVOTHYROXINE 75 MCG TABLET PO SCH (05:35)
[2019-10-24 07:20] VITALS: BP 106/52
[2019-10-24] MEDS: LACTOBACILLUS RHAMNOSUS GG 1 CAPSULE. PO SCH ×2 (08:12→21:08)
[2019-10-24] MEDS: VITAMIN B12,B9,B6 COMPLEX 1 TABLET. PO SCH (08:12)
[2019-10-24] MEDS: POTASSIUM CL 20MEQ D5-0.45NACL 1,000 ML IV SCH ×2 (08:12→16:22)
[2019-10-24] MEDS: ASCORBIC ACID 500 MG TABLET PO SCH (08:12)
[2019-10-24] MEDS: guaiFENesin DM 600/30MG 1 TAB TAB.ER.12H PO SCH ×2 (08:12→21:08)
[2019-10-24] MEDS: ZINC SULFATE 220 MG CAPSULE. PO SCH (08:12)
[2019-10-24] MEDS: BENZONATATE 100 MG CAPSULE. PO SCH ×3 (08:13→21:08)
--- NOTE | 2019-10-24 08:22 | PDOC ---
PULMONARY PROGRESS NOTES Subjective Patient has some dry eyes, otherwise no increasing shortness of breath Vitals Vital Signs Date Time Temp Pulse Resp B/P (MAP) Pulse Ox O2 Delivery O2 Flow Rate FiO2 10/24/19 07:20 99.3 69 20 106/52 (70) 91 Nasal Cannula 4.0 99.3 ROS: No Nausea, No Chest Pain, No Abdominal Pain, No Increase Cough Lungs: Clear Cardiovascular: S1, S2 Abdomen: Soft Neuro Exam: Alert Extremities: No Edema Skin: Warm Labs Laboratory Tests Test 10/24/19 04:30 White Blood Count 7.1 x10^3/uL (4.0-11.0) Red Blood Count 3.89 x10^6/uL (3.50-5.40) Hemoglobin 11.9 g/dL (12.0-15.5) Hematocrit 35.0 % (36.0-47.0) Mean Corpuscular Volume 90 fL (79-100) Mean Corpuscular Hemoglobin 31 pg (25-35) Mean Corpuscular Hemoglobin Concent 34 g/dL (31-37) Red Cell Distribution Width 13.3 % (11.5-14.5) Platelet Count 257 x10^3/uL (140-400) Neutrophils (%) (Auto) 78 % (31-73) Lymphocytes (%) (Auto) 14 % (24-48) Monocytes (%) (Auto) 8 % (0-9) Eosinophils (%) (Auto) 0 % (0-3) Basophils (%) (Auto) 0 % (0-3) Neutrophils # (Auto) 5.5 x10^3/uL (1.8-7.7) Lymphocytes # (Auto) 1.0 x10^3/uL (1.0-4.8) Monocytes # (Auto) 0.6 x10^3/uL (0.0-1.1) Eosinophils # (Auto) 0.0 x10^3/uL (0.0-0.7) Basophils # (Auto) 0.0 x10^3/uL (0.0-0.2) Sodium Level 138 mmol/L (136-145) Potassium Level 3.5 mmol/L (3.5-5.1) Chloride Level 104 mmol/L (98-107) Carbon Dioxide Level 24 mmol/L (21-32) Anion Gap 10 (6-14) Blood Urea Nitrogen 6 mg/dL (7-20) Creatinine 0.7 mg/dL (0.6-1.0) Estimated GFR (Cockcroft-Gault) 94.2 BUN/Creatinine Ratio 9 (6-20) Glucose Level 125 mg/dL (70-99) Calcium Level 8.1 mg/dL (8.5-10.1) Total Bilirubin 0.4 mg/dL (0.2-1.0) Aspartate Amino Transf (AST/SGOT) 243 U/L (15-37) Alanine Aminotransferase (ALT/SGPT) 242 U/L (14-59) Alkaline Phosphatase 131 U/L (46-116) Total Protein 6.6 g/dL (6.4-8.2) Albumin 2.2 g/dL (3.4-5.0) Albumin/Globulin Ratio 0.5 (1.0-1.7) Laboratory Tests Test 10/24/19 04:30 White Blood Count 7.1 x10^3/uL (4.0-11.0) Red Blood Count 3.89 x10^6/uL (3.50-5.40) Hemoglobin 11.9 g/dL (12.0-15.5) Hematocrit 35.0 % (36.0-47.0) Mean Corpuscular Volume 90 fL (79-100) Mean Corpuscular Hemoglobin 31 pg (25-35) Mean Corpuscular Hemoglobin Concent 34 g/dL (31-37) Red Cell Distribution Width 13.3 % (11.5-14.5) Platelet Count 257 x10^3/uL (140-400) Neutrophils (%) (Auto) 78 % (31-73) Lymphocytes (%) (Auto) 14 % (24-48) Monocytes (%) (Auto) 8 % (0-9) Eosinophils (%) (Auto) 0 % (0-3) Basophils (%) (Auto) 0 % (0-3) Neutrophils # (Auto) 5.5 x10^3/uL (1.8-7.7) Lymphocytes # (Auto) 1.0 x10^3/uL (1.0-4.8) Monocytes # (Auto) 0.6 x10^3/uL (0.0-1.1) Eosinophils # (Auto) 0.0 x10^3/uL (0.0-0.7) Basophils # (Auto) 0.0 x10^3/uL (0.0-0.2) Sodium Level 138 mmol/L (136-145) Potassium Level 3.5 mmol/L (3.5-5.1) Chloride Level 104 mmol/L (98-107) Carbon Dioxide Level 24 mmol/L (21-32) Anion Gap 10 (6-14) Blood Urea Nitrogen 6 mg/dL (7-20) Creatinine 0.7 mg/dL (0.6-1.0) Estimated GFR (Cockcroft-Gault) 94.2 BUN/Creatinine Ratio 9 (6-20) Glucose Level 125 mg/dL (70-99) Calcium Level 8.1 mg/dL (8.5-10.1) Total Bilirubin 0.4 mg/dL (0.2-1.0) Aspartate Amino Transf (AST/SGOT) 243 U/L (15-37) Alanine Aminotransferase (ALT/SGPT) 242 U/L (14-59) Alkaline Phosphatase 131 U/L (46-116) Total Protein 6.6 g/dL (6.4-8.2) Albumin 2.2 g/dL (3.4-5.0) Albumin/Globulin Ratio 0.5 (1.0-1.7) Medications Active Scripts Medications Dose Route/Sig Max Daily Dose Days Date Category Synthroid (Levothyroxine Sodium) 75 Mcg Tablet 75 Mcg PO DAILYAC 10/22/19 Reported No Known Medications Prior To Admisstion (Info) Each 1 Each 1X 10/21/19 Reported Impression . IMPRESSION: 1. Acute hypoxic respiratory failure secondary to COVID-19 pneumonia. 2. COVID-19 positive. 3. Abnormal chest x-ray with basilar infiltrates consistent with COVID pneumonia. Plan . Discharge planning in place, may require oxygen. 1. Continue with present oxygen. 2. Add empiric antibiotic. 3. DVT prophylaxis. 4. PRN albuterol. 5. Follow the response to treatment. GABY OTERO MD October 24, 2019 08:22
--- NOTE | 2019-10-24 09:50 | NUR ---
SS following up with discharge planning. SS discussed with pt RN. Pt is self pay pt. Pt is COVID positive and is currently requiring oxygen. Pt being notified of oxygen cost of $115/month for concentrator and tubing and need to put credit card or debit card on file with oxygen company prior to discharge. SS will continue to follow for discharge planning.
[2019-10-24 10:38] VITALS: BP 105/54
[2019-10-24] MEDS: cefTRIAXone IV Push 1 GM VIAL. IVP SCH (11:27)
[2019-10-24] MEDS: oxyCODONE IR 5 MG TABLET PO PRN (11:55)
--- NOTE | 2019-10-24 13:38 | PDOC ---
PROGRESS NOTES Chief Complaint Chief Complaint sepsis confirmed previously COVID -19 infection obese, BMI 33 transaminitis moderate malnutrition from acute illness poor PO intake, nausea and anorexia, History of Present Illness History of Present Illness some symptoms better, would like to DC soon cant sit up, cant eat, still very weak on home oxygen, I have asked social work to have DC plan of home oxygen ready, she reports she would be able to pay $130 for home oxygen, if avail try to dc soon symptoms of COVID 19 infection persist , cont hospitalzation and supportive care poor po intake eye dryness, nausea cough, Vitals Vitals Vital Signs Date Time Temp Pulse Resp B/P (MAP) Pulse Ox O2 Delivery O2 Flow Rate FiO2 10/24/19 11:55 18 92 Nasal Cannula 4.0 10/24/19 10:38 99.5 91 105/54 (71) 99.5 Physical Exam General: Alert, Oriented X3, Cooperative, mild distress Heart: No murmurs Lungs: Clear Abdomen: Normal bowel sounds, Soft Extremities: No edema Skin: No rashes, No breakdown Labs LABS Laboratory Tests Test 10/24/19 04:30 White Blood Count 7.1 x10^3/uL (4.0-11.0) Red Blood Count 3.89 x10^6/uL (3.50-5.40) Hemoglobin 11.9 g/dL (12.0-15.5) Hematocrit 35.0 % (36.0-47.0) Mean Corpuscular Volume 90 fL (79-100) Mean Corpuscular Hemoglobin 31 pg (25-35) Mean Corpuscular Hemoglobin Concent 34 g/dL (31-37) Red Cell Distribution Width 13.3 % (11.5-14.5) Platelet Count 257 x10^3/uL (140-400) Neutrophils (%) (Auto) 78 % (31-73) Lymphocytes (%) (Auto) 14 % (24-48) Monocytes (%) (Auto) 8 % (0-9) Eosinophils (%) (Auto) 0 % (0-3) Basophils (%) (Auto) 0 % (0-3) Neutrophils # (Auto) 5.5 x10^3/uL (1.8-7.7) Lymphocytes # (Auto) 1.0 x10^3/uL (1.0-4.8) Monocytes # (Auto) 0.6 x10^3/uL (0.0-1.1) Eosinophils # (Auto) 0.0 x10^3/uL (0.0-0.7) Basophils # (Auto) 0.0 x10^3/uL (0.0-0.2) Sodium Level 138 mmol/L (136-145) Potassium Level 3.5 mmol/L (3.5-5.1) Chloride Level 104 mmol/L (98-107) Carbon Dioxide Level 24 mmol/L (21-32) Anion Gap 10 (6-14) Blood Urea Nitrogen 6 mg/dL (7-20) Creatinine 0.7 mg/dL (0.6-1.0) Estimated GFR (Cockcroft-Gault) 94.2 BUN/Creatinine Ratio 9 (6-20) Glucose Level 125 mg/dL (70-99) Calcium Level 8.1 mg/dL (8.5-10.1) Total Bilirubin 0.4 mg/dL (0.2-1.0) Aspartate Amino Transf (AST/SGOT) 243 U/L (15-37) Alanine Aminotransferase (ALT/SGPT) 242 U/L (14-59) Alkaline Phosphatase 131 U/L (46-116) Total Protein 6.6 g/dL (6.4-8.2) Albumin 2.2 g/dL (3.4-5.0) Albumin/Globulin Ratio 0.5 (1.0-1.7) Assessment and Plan Assessmemt and Plan Problems Medical Problems: (1) COVID-19 virus infection Status: Acute (2) Hypoxemia Status: Acute (3) Pneumonia Status: Acute Comment Review of Relevant I have reviewed the following items harmeet (where applicable) has been applied. Labs Laboratory Tests Test 10/24/19 04:30 White Blood Count 7.1 x10^3/uL (4.0-11.0) Red Blood Count 3.89 x10^6/uL (3.50-5.40) Hemoglobin 11.9 g/dL (12.0-15.5) Hematocrit 35.0 % (36.0-47.0) Mean Corpuscular Volume 90 fL (79-100) Mean Corpuscular Hemoglobin 31 pg (25-35) Mean Corpuscular Hemoglobin Concent 34 g/dL (31-37) Red Cell Distribution Width 13.3 % (11.5-14.5) Platelet Count 257 x10^3/uL (140-400) Neutrophils (%) (Auto) 78 % (31-73) Lymphocytes (%) (Auto) 14 % (24-48) Monocytes (%) (Auto) 8 % (0-9) Eosinophils (%) (Auto) 0 % (0-3) Basophils (%) (Auto) 0 % (0-3) Neutrophils # (Auto) 5.5 x10^3/uL (1.8-7.7) Lymphocytes # (Auto) 1.0 x10^3/uL (1.0-4.8) Monocytes # (Auto) 0.6 x10^3/uL (0.0-1.1) Eosinophils # (Auto) 0.0 x10^3/uL (0.0-0.7) Basophils # (Auto) 0.0 x10^3/uL (0.0-0.2) Sodium Level 138 mmol/L (136-145) Potassium Level 3.5 mmol/L (3.5-5.1) Chloride Level 104 mmol/L (98-107) Carbon Dioxide Level 24 mmol/L (21-32) Anion Gap 10 (6-14) Blood Urea Nitrogen 6 mg/dL (7-20) Creatinine 0.7 mg/dL (0.6-1.0) Estimated GFR (Cockcroft-Gault) 94.2 BUN/Creatinine Ratio 9 (6-20) Glucose Level 125 mg/dL (70-99) Calcium Level 8.1 mg/dL (8.5-10.1) Total Bilirubin 0.4 mg/dL (0.2-1.0) Aspartate Amino Transf (AST/SGOT) 243 U/L (15-37) Alanine Aminotransferase (ALT/SGPT) 242 U/L (14-59) Alkaline Phosphatase 131 U/L (46-116) Total Protein 6.6 g/dL (6.4-8.2) Albumin 2.2 g/dL (3.4-5.0) Albumin/Globulin Ratio 0.5 (1.0-1.7) Laboratory Tests Test 10/24/19 04:30 White Blood Count 7.1 x10^3/uL (4.0-11.0) Red Blood Count 3.89 x10^6/uL (3.50-5.40) Hemoglobin 11.9 g/dL (12.0-15.5) Hematocrit 35.0 % (36.0-47.0) Mean Corpuscular Volume 90 fL (79-100) Mean Corpuscular Hemoglobin 31 pg (25-35) Mean Corpuscular Hemoglobin Concent 34 g/dL (31-37) Red Cell Distribution Width 13.3 % (11.5-14.5) Platelet Count 257 x10^3/uL (140-400) Neutrophils (%) (Auto) 78 % (31-73) Lymphocytes (%) (Auto) 14 % (24-48) Monocytes (%) (Auto) 8 % (0-9) Eosinophils (%) (Auto) 0 % (0-3) Basophils (%) (Auto) 0 % (0-3) Neutrophils # (Auto) 5.5 x10^3/uL (1.8-7.7) Lymphocytes # (Auto) 1.0 x10^3/uL (1.0-4.8) Monocytes # (Auto) 0.6 x10^3/uL (0.0-1.1) Eosinophils # (Auto) 0.0 x10^3/uL (0.0-0.7) Basophils # (Auto) 0.0 x10^3/uL (0.0-0.2) Sodium Level 138 mmol/L (136-145) Potassium Level 3.5 mmol/L (3.5-5.1) Chloride Level 104 mmol/L (98-107) Carbon Dioxide Level 24 mmol/L (21-32) Anion Gap 10 (6-14) Blood Urea Nitrogen 6 mg/dL (7-20) Creatinine 0.7 mg/dL (0.6-1.0) Estimated GFR (Cockcroft-Gault) 94.2 BUN/Creatinine Ratio 9 (6-20) Glucose Level 125 mg/dL (70-99) Calcium Level 8.1 mg/dL (8.5-10.1) Total Bilirubin 0.4 mg/dL (0.2-1.0) Aspartate Amino Transf (AST/SGOT) 243 U/L (15-37) Alanine Aminotransferase (ALT/SGPT) 242 U/L (14-59) Alkaline Phosphatase 131 U/L (46-116) Total Protein 6.6 g/dL (6.4-8.2) Albumin 2.2 g/dL (3.4-5.0) Albumin/Globulin Ratio 0.5 (1.0-1.7) Microbiology 10/22/19 Blood Culture - Preliminary, Resulted NO GROWTH AFTER 2 DAYS 10/20/19 Urine Culture - Final, Complete 10/20/19 Urine Culture Result 1 (KRISTA) - Final, Complete Medications Current Medications Albuterol/ Ipratropium (Duoneb) 3 ml 1X ONCE NEB ; Start 10/20/19 at 22:15; Stop 10/20/19 at 22:16; Status DC Acetaminophen (Tylenol) 1,000 mg 1X ONCE PO ; Start 10/20/19 at 22:30; Stop 10/20/19 at 22:31; Status DC Ondansetron HCl (Zofran) 4 mg PRN Q8HRS PRN IV NAUSEA/VOMITING; Start 10/20/19 at 23:45; Stop 10/21/19 at 23:44; Status DC Morphine Sulfate (Morphine Sulfate) 4 mg PRN Q2HR PRN IV PAIN; Start 10/20/19 at 23:45; Stop 10/21/19 at 23:44; Status DC Acetaminophen (Tylenol) 650 mg PRN Q4HRS PRN PO FEVER > 100.3'F Last administered on 10/21/19at 20:01; Start 10/20/19 at 23:45; Stop 10/21/19 at 23:44; Status DC Albuterol/ Ipratropium (Duoneb) 3 ml RTQID NEB ; Start 10/21/19 at 08:00; Stop 10/21/19 at 07:13; Status DC Albuterol/ Ipratropium (Duoneb) 3 ml PRN QID PRN NEB SHORTNESS OF BREATH; Start 10/21/19 at 07:15; Stop 10/22/19 at 07:14; Status UNV Albuterol Sulfate (Ventolin Neb Soln) 2.5 mg PRN QID PRN NEB SHORTNESS OF BREATH; Start 10/21/19 at 07:15 Ascorbic Acid (Vitamin C) 500 mg DAILY PO Last administered on 10/24/19at 08:12; Start 10/21/19 at 10:00 Zinc Sulfate (Orazinc) 220 mg DAILY PO Last administered on 10/24/19 08:12; Start 10/21/19 at 10:00 Enoxaparin Sodium (Lovenox Per Pharmacy Prophylaxis Dosing) 1 each PRN DAILY PRN MC SEE COMMENTS; Start 10/21/19 at 09:15 Potassium Chloride (Klor-Con) 20 meq 1X ONCE PO Last administered on 10/21/19at 12:12; Start 10/21/19 at 09:15; Stop 10/21/19 at 09:16; Status DC Enoxaparin Sodium (Lovenox 40mg Syringe) 40 mg Q24H SQ Last administered on 10/23/19 15:26; Start 10/21/19 at 16:00 Guaifenesin/ Codeine Phosphate (Robitussin Ac) 5 ml PRN Q6HRS PRN PO COUGH Last administered on 10/23/19 04:46; Start 10/21/19 at 09:15 Guaifenesin (MUCINEX ER with DM) 1 tab BID PO Last administered on 10/24/19 08:12; Start 10/21/19 at 21:00 Tramadol HCl (Ultram) 50 mg PRN Q6HRS PRN PO MODERATE PAIN; Start 10/21/19 at 09:15 Ceftriaxone Sodium (Rocephin) 1 gm Q24H IVP Last administered on 10/24/19 11:27 ; Start 10/21/19 at 12:00 Sodium Chloride 1,000 ml @ 125 mls/hr 1X ONCE IV Last administered on 10/21/19at 12:11; Start 10/21/19 at 11:30; Stop 10/21/19 at 19:29; Status DC Acetaminophen (Tylenol) 650 mg PRN Q4HRS PRN PO MILD PAIN/TEMP Last administered on 10/23/19 16:00; Start 10/22/19 at 00:15 Levothyroxine Sodium (Synthroid) 75 mcg DAILY06 PO Last administered on 10/24/19 05:35; Start 10/22/19 at 06:00 Oxycodone HCl (Roxicodone) 5 mg PRN Q6HRS PRN PO SEVERE PAIN Last administered on 10/24/19at 11:55; Start 10/22/19 at 11:30 Artificial Tears (Artificial Tears) 1 drop PRN Q15MIN PRN OU DRY EYE Last administered on 10/22/19 20:06; Start 10/22/19 at 11:30 Sodium Chloride 1,000 ml @ 125 mls/hr 1X ONCE IV Last administered on 10/22/19at 11:54; Start 10/22/19 at 11:30; Stop 10/22/19 at 19:29; Status DC Lactobacillus Rhamnosus (Culturelle) 1 cap BID PO Last administered on 10/24/19at 08:12; Start 10/22/19 at 21:00 Potassium Chloride/Dextrose/ Sod Cl 1,000 ml @ 100 mls/hr Q10H IV Last administered on 10/24/19 08:12; Start 10/23/19 at 08:45 Benzonatate (Tessalon Perle) 100 mg [id number] PO Last administered on 10/24/19 08:13; Start 10/23/19 at 09:15 Vitamin B Complex (Folbic Tablet) 1 tab DAILY PO Last administered on 10/24/19at 08:12; Start 10/23/19 at 09:30 Active Scripts Active Reported Synthroid (Levothyroxine Sodium) 75 Mcg Tablet 75 Mcg PO DAILYAC No Known Medications Prior To Admisstion (Info) Each 1 Each 1X Vitals/I & O Vital Sign - Last 24 Hours 10/23/19 10/23/19 10/23/19 10/23/19 15:00 19:00 20:00 23:00 Temp 101.3 100.2 100.4 101.3 100.2 100.4 Pulse 73 76 74 Resp 24 24 24 B/P (MAP) 106/46 (66) 103/58 (73) 107/56 (73) Pulse Ox 96 93 94 O2 Delivery Nasal Cannula Nasal Cannula Nasal Cannula Nasal Cannula O2 Flow Rate 4.0 4.0 4.0 4.0 10/24/19 10/24/19 10/24/19 10/24/19 03:00 07:20 08:00 10:38 Temp 100.4 99.3 99.5 100.4 99.3 99.5 Pulse 70 69 91 Resp 24 20 17 B/P (MAP) 105/57 (73) 106/52 (70) 105/54 (71) Pulse Ox 92 91 92 O2 Delivery Nasal Cannula Nasal Cannula Nasal Cannula Nasal Cannula O2 Flow Rate 4.0 4.0 4.0 4.0 10/24/19 11:55 Resp 18 Pulse Ox 92 O2 Delivery Nasal Cannula O2 Flow Rate 4.0 Intake and Output 10/23/19 10/23/19 10/24/19 15:00 23:00 07:00 Intake Total 240 ml 50 ml 0 ml Output Total 250 ml Balance 240 ml -200 ml 0 ml NADER DUMONT MD October 24, 2019 13:38
[2019-10-24 14:23] VITALS: BP 109/54
[2019-10-24] MEDS: ENOXAPARIN 40 MG/0.4 ML SYRINGE. SQ SCH (16:22)
[2019-10-24 19:00] VITALS: BP 106/74
[2019-10-24 23:00] VITALS: BP 117/57
[2019-10-25] VITALS (7 sets, daily range): BP systolic 91–118; BP diastolic 47–65
[2019-10-25] MEDS: POTASSIUM CL 20MEQ D5-0.45NACL 1,000 ML IV SCH ×3 (00:45→20:45)
[2019-10-25] MEDS: LEVOTHYROXINE 75 MCG TABLET PO SCH (05:25)
[2019-10-25] MEDS: POLYVINYL ALCOHOL 1.4% OPHTH SOLUTION 15ML BOTTLE. OU PRN (05:26)
[2019-10-25] MEDS: oxyCODONE IR 5 MG TABLET PO PRN ×2 (05:35→18:21)
[2019-10-25] MEDS: VITAMIN B12,B9,B6 COMPLEX 1 TABLET. PO SCH (08:25)
[2019-10-25] MEDS: LACTOBACILLUS RHAMNOSUS GG 1 CAPSULE. PO SCH ×2 (08:26→20:18)
[2019-10-25] MEDS: ASCORBIC ACID 500 MG TABLET PO SCH (08:26)
[2019-10-25] MEDS: ZINC SULFATE 220 MG CAPSULE. PO SCH (08:26)
[2019-10-25] MEDS: BENZONATATE 100 MG CAPSULE. PO SCH ×3 (08:26→20:18)
[2019-10-25] MEDS: guaiFENesin DM 600/30MG 1 TAB TAB.ER.12H PO SCH ×2 (08:30→20:18)
[2019-10-25] MEDS: ACETAMINOPHEN 325 MG TABLET. PO PRN ×2 (10:19→19:06)
[2019-10-25] MEDS ORDERED: BENZ-8 PO (12:47)
[2019-10-25] MEDS ORDERED: guaiFENesin/CODEINE 100mg/10mg PO (12:47)
[2019-10-25] MEDS ORDERED: ACET325T9 PO (12:47)
--- NOTE | 2019-10-25 13:14 | PDOC3 ---
Discharge Summary Visit Information Date of Admission: October 20, 2019 Date of Discharge: October 25, 2019 Final Diagnosis sepsis confirmed COVID -19 infection, cough, dyspnea acute hypoxic respiratory failure obese, BMI 33 transaminitis moderate malnutrition from acute illness poor PO intake, nausea and anorexia, Problems Medical Problems: (1) COVID-19 virus infection Status: Acute (2) Hypoxemia Status: Acute (3) Pneumonia Status: Acute Brief Hospital Course Allergies Allergies Coded Allergies Type Severity Reaction Last Updated Verified No Known Drug Allergies 10/24/19 No Vital Signs Vital Signs Date Time Temp Pulse Resp B/P (MAP) Pulse Ox O2 Delivery O2 Flow Rate FiO2 10/25/19 11:00 99.4 78 18 105/61 (76) 92 Nasal Cannula 4.0 99.4 Lab Results Laboratory Tests Test 10/24/19 04:30 White Blood Count 7.1 x10^3/uL (4.0-11.0) Red Blood Count 3.89 x10^6/uL (3.50-5.40) Hemoglobin 11.9 g/dL (12.0-15.5) Hematocrit 35.0 % (36.0-47.0) Mean Corpuscular Volume 90 fL (79-100) Mean Corpuscular Hemoglobin 31 pg (25-35) Mean Corpuscular Hemoglobin Concent 34 g/dL (31-37) Red Cell Distribution Width 13.3 % (11.5-14.5) Platelet Count 257 x10^3/uL (140-400) Neutrophils (%) (Auto) 78 % (31-73) Lymphocytes (%) (Auto) 14 % (24-48) Monocytes (%) (Auto) 8 % (0-9) Eosinophils (%) (Auto) 0 % (0-3) Basophils (%) (Auto) 0 % (0-3) Neutrophils # (Auto) 5.5 x10^3/uL (1.8-7.7) Lymphocytes # (Auto) 1.0 x10^3/uL (1.0-4.8) Monocytes # (Auto) 0.6 x10^3/uL (0.0-1.1) Eosinophils # (Auto) 0.0 x10^3/uL (0.0-0.7) Basophils # (Auto) 0.0 x10^3/uL (0.0-0.2) Sodium Level 138 mmol/L (136-145) Potassium Level 3.5 mmol/L (3.5-5.1) Chloride Level 104 mmol/L (98-107) Carbon Dioxide Level 24 mmol/L (21-32) Anion Gap 10 (6-14) Blood Urea Nitrogen 6 mg/dL (7-20) Creatinine 0.7 mg/dL (0.6-1.0) Estimated GFR (Cockcroft-Gault) 94.2 BUN/Creatinine Ratio 9 (6-20) Glucose Level 125 mg/dL (70-99) Calcium Level 8.1 mg/dL (8.5-10.1) Total Bilirubin 0.4 mg/dL (0.2-1.0) Aspartate Amino Transf (AST/SGOT) 243 U/L (15-37) Alanine Aminotransferase (ALT/SGPT) 242 U/L (14-59) Alkaline Phosphatase 131 U/L (46-116) Total Protein 6.6 g/dL (6.4-8.2) Albumin 2.2 g/dL (3.4-5.0) Albumin/Globulin Ratio 0.5 (1.0-1.7) Brief Hospital Course Ms. Eddi Solomon is a 39 old female, admit with cough, dyspnea, hypoxia, respiratory failure related to COVID, felt better after 4 days, supportive care, DC home with home 02 Discharge Information Condition at Discharge: Improved Follow Up: Weeks Disposition/Orders: D/C to Home Scheduled Info (No Known Medications Prior To Admisstion) Each, 1 EACH 1X for no known meds, (Reported) Entered as Reported by: Cirilo Almeida on 10/21/19107 Last Action: New Order on 10/21/19107 by Cirilo Almeida Levothyroxine Sodium (Synthroid) 75 Mcg Tablet, 75 MCG PO DAILYAC for THYROID SUPPLEMENT, #30 Ref 0 (Reported) Entered as Reported by: Ruddy Romero on [birth year]/22[birth year]1930 Last Action: Continued on 10/22/1931 by Ruddy Romero Scheduled PRN Acetaminophen (Tylenol) 325 Mg Tablet, 650 MG PO PRN Q4HRS PRN for MILD PAIN/TEMP, #30 Prescribed by: NADER DUMONT on 10/25/19 1247 Benzonatate (Benzonatate) 100 Mg Capsule, 100 MG PO [id number] PRN for COUGH, #20 Prescribed by: NADER DUMONT on 10/25/19 1247 [guaiFENesin/CODEINE 100mg/10mg] 5 ML LIQUID, 120 ML PO PRN Q6HRS PRN for COUGH Prescribed by: NADER DUMONT on 10/25/19 1247 Patient Instructions Patient Instructions < 30 min face to face home oxygen, compassion program NADER DUMONT MD October 25, 2019 13:14
--- NOTE | 2019-10-25 14:40 | NUR ---
SS following up with discharge planning. Discharge order on the chart for home with self care. Oxygen script received. SS phoned and faxed oxygen script and clinical to [facility], ; fax [phone]. Credit card information provided by pt and provided to [facility]. Oxygen tank provided to pt's RN for discharge. Pt will discharge today and return to home between 1630 and 1700 via [facility]. Pt's RN notified.
[2019-10-25] MEDS: cefTRIAXone IV Push 1 GM VIAL. IVP SCH (14:46)
[2019-10-25] MEDS: ENOXAPARIN 40 MG/0.4 ML SYRINGE. SQ SCH ×2 (16:00→18:23)
--- NOTE | 2019-10-25 16:39 | PDOC ---
PROGRESS NOTES Chief Complaint Chief Complaint sepsis acute hypoxic respiratory failure confirmed previously COVID -19 infection obese, BMI 33 transaminitis moderate malnutrition from acute illness poor PO intake, nausea and anorexia, History of Present Illness History of Present Illness some symptoms better, would like to DC soon cant sit up, cant eat, still very weak on home oxygen, I have asked social work to have DC plan of home oxygen ready, she reports she would be able to pay $130 for home oxygen, if avail try to dc soon symptoms of COVID 19 infection persist , cont hospitalzation and supportive care poor po intake eye dryness, nausea cough, Vitals Vitals Vital Signs Date Time Temp Pulse Resp B/P (MAP) Pulse Ox O2 Delivery O2 Flow Rate FiO2 10/25/19 11:00 99.4 78 18 105/61 (76) 92 Nasal Cannula 4.0 99.4 Physical Exam General: Alert, Oriented X3, Cooperative, mild distress Heart: No murmurs Lungs: Clear Abdomen: Normal bowel sounds, Soft Extremities: No edema Skin: No rashes, No breakdown Assessment and Plan Assessmemt and Plan Problems Medical Problems: (1) COVID-19 virus infection Status: Acute (2) Hypoxemia Status: Acute (3) Pneumonia Status: Acute Comment Review of Relevant I have reviewed the following items harmeet (where applicable) has been applied. Labs Laboratory Tests Test 10/24/19 04:30 White Blood Count 7.1 x10^3/uL (4.0-11.0) Red Blood Count 3.89 x10^6/uL (3.50-5.40) Hemoglobin 11.9 g/dL (12.0-15.5) Hematocrit 35.0 % (36.0-47.0) Mean Corpuscular Volume 90 fL (79-100) Mean Corpuscular Hemoglobin 31 pg (25-35) Mean Corpuscular Hemoglobin Concent 34 g/dL (31-37) Red Cell Distribution Width 13.3 % (11.5-14.5) Platelet Count 257 x10^3/uL (140-400) Neutrophils (%) (Auto) 78 % (31-73) Lymphocytes (%) (Auto) 14 % (24-48) Monocytes (%) (Auto) 8 % (0-9) Eosinophils (%) (Auto) 0 % (0-3) Basophils (%) (Auto) 0 % (0-3) Neutrophils # (Auto) 5.5 x10^3/uL (1.8-7.7) Lymphocytes # (Auto) 1.0 x10^3/uL (1.0-4.8) Monocytes # (Auto) 0.6 x10^3/uL (0.0-1.1) Eosinophils # (Auto) 0.0 x10^3/uL (0.0-0.7) Basophils # (Auto) 0.0 x10^3/uL (0.0-0.2) Sodium Level 138 mmol/L (136-145) Potassium Level 3.5 mmol/L (3.5-5.1) Chloride Level 104 mmol/L (98-107) Carbon Dioxide Level 24 mmol/L (21-32) Anion Gap 10 (6-14) Blood Urea Nitrogen 6 mg/dL (7-20) Creatinine 0.7 mg/dL (0.6-1.0) Estimated GFR (Cockcroft-Gault) 94.2 BUN/Creatinine Ratio 9 (6-20) Glucose Level 125 mg/dL (70-99) Calcium Level 8.1 mg/dL (8.5-10.1) Total Bilirubin 0.4 mg/dL (0.2-1.0) Aspartate Amino Transf (AST/SGOT) 243 U/L (15-37) Alanine Aminotransferase (ALT/SGPT) 242 U/L (14-59) Alkaline Phosphatase 131 U/L (46-116) Total Protein 6.6 g/dL (6.4-8.2) Albumin 2.2 g/dL (3.4-5.0) Albumin/Globulin Ratio 0.5 (1.0-1.7) Microbiology 10/22/19 Blood Culture - Preliminary, Resulted NO GROWTH AFTER 3 DAYS 10/20/19 Urine Culture - Final, Complete 10/20/19 Urine Culture Result 1 (KRISTA) - Final, Complete Medications Current Medications Albuterol/ Ipratropium (Duoneb) 3 ml 1X ONCE NEB ; Start 10/20/19 at 22:15; Stop 10/20/19 at 22:16; Status DC Acetaminophen (Tylenol) 1,000 mg 1X ONCE PO ; Start 10/20/19 at 22:30; Stop 10/20/19 at 22:31; Status DC Ondansetron HCl (Zofran) 4 mg PRN Q8HRS PRN IV NAUSEA/VOMITING; Start 10/20/19 at 23:45; Stop 10/21/19 at 23:44; Status DC Morphine Sulfate (Morphine Sulfate) 4 mg PRN Q2HR PRN IV PAIN; Start 10/20/19 at 23:45; Stop 10/21/19 at 23:44; Status DC Acetaminophen (Tylenol) 650 mg PRN Q4HRS PRN PO FEVER > 100.3'F Last administered on 10/21/19at 20:01; Start 10/20/19 at 23:45; Stop 10/21/19 at 23:44; Status DC Albuterol/ Ipratropium (Duoneb) 3 ml RTQID NEB ; Start 10/21/19 at 08:00; Stop 10/21/19 at 07:13; Status DC Albuterol/ Ipratropium (Duoneb) 3 ml PRN QID PRN NEB SHORTNESS OF BREATH; Start 10/21/19 at 07:15; Stop 10/22/19 at 07:14; Status UNV Albuterol Sulfate (Ventolin Neb Soln) 2.5 mg PRN QID PRN NEB SHORTNESS OF BREATH; Start 10/21/19 at 07:15 Ascorbic Acid (Vitamin C) 500 mg DAILY PO Last administered on 10/25/19at 08:26; Start 10/21/19 at 10:00 Zinc Sulfate (Orazinc) 220 mg DAILY PO Last administered on 10/25/19at 08:26; Start 10/21/19 at 10:00 Enoxaparin Sodium (Lovenox Per Pharmacy Prophylaxis Dosing) 1 each PRN DAILY PRN MC SEE COMMENTS; Start 10/21/19 at 09:15 Potassium Chloride (Klor-Con) 20 meq 1X ONCE PO Last administered on 10/21/19at 12:12; Start 10/21/19 at 09:15; Stop 10/21/19 at 09:16; Status DC Enoxaparin Sodium (Lovenox 40mg Syringe) 40 mg Q24H SQ Last administered on 10/24/19at 16:22; Start 10/21/19 at 16:00 Guaifenesin/ Codeine Phosphate (Robitussin Ac) 5 ml PRN Q6HRS PRN PO COUGH Last administered on 10/23/19 04:46; Start 10/21/19 at 09:15 Guaifenesin (MUCINEX ER with DM) 1 tab BID PO Last administered on 10/25/19 08:30; Start 10/21/19 at 21:00 Tramadol HCl (Ultram) 50 mg PRN Q6HRS PRN PO MODERATE PAIN; Start 10/21/19 at 09:15 Ceftriaxone Sodium (Rocephin) 1 gm Q24H IVP Last administered on 10/25/19 14:46; Start 10/21/19 at 12:00 Sodium Chloride 1,000 ml @ 125 mls/hr 1X ONCE IV Last administered on 10/21/19 12:11; Start 10/21/19 at 11:30; Stop 10/21/19 at 19:29; Status DC Acetaminophen (Tylenol) 650 mg PRN Q4HRS PRN PO MILD PAIN/TEMP Last administered on 10/25/19 10:19; Start 10/22/19 at 00:15 Levothyroxine Sodium (Synthroid) 75 mcg DAILY06 PO Last administered on 10/25/19 05:25; Start 10/22/19 at 06:00 Oxycodone HCl (Roxicodone) 5 mg PRN Q6HRS PRN PO SEVERE PAIN Last administered on 10/25/19at 05:35; Start 10/22/19 at 11:30 Artificial Tears (Artificial Tears) 1 drop PRN Q15MIN PRN OU DRY EYE Last administered on 10/25/19at 05:26; Start 10/22/19 at 11:30 Sodium Chloride 1,000 ml @ 125 mls/hr 1X ONCE IV Last administered on 10/22/19at 11:54; Start 10/22/19 at 11:30; Stop 10/22/19 at 19:29; Status DC Lactobacillus Rhamnosus (Culturelle) 1 cap BID PO Last administered on 10/25/19at 08:26; Start 10/22/19 at 21:00 Potassium Chloride/Dextrose/ Sod Cl 1,000 ml @ 100 mls/hr Q10H IV Last administered on 10/24/19at 16:22; Start 10/23/19 at 08:45 Benzonatate (Tessalon Perle) 100 mg [id number] PO Last administered on 10/25/19at 14:46; Start 10/23/19 at 09:15 Vitamin B Complex (Folbic Tablet) 1 tab DAILY PO Last administered on 10/25/19at 08:25; Start 10/23/19 at 09:30 Vitamin D (Vitamin D3) 5,000 unit DAILY PO ; Start 10/25/19 at 16:15 Active Scripts Active Tylenol (Acetaminophen) 325 Mg Tablet 650 Mg PO PRN Q4HRS PRN [guaiFENesin/CODEINE 100mg/10mg] 5 ML Liquid 120 Ml PO PRN Q6HRS PRN Benzonatate 100 Mg Capsule 100 Mg PO [id number] PRN Reported Synthroid (Levothyroxine Sodium) 75 Mcg Tablet 75 Mcg PO DAILYAC No Known Medications Prior To Admisstion (Info) Each 1 Each 1X Vitals/I & O Vital Sign - Last 24 Hours 10/24/19 10/24/19 10/24/19 10/25/19 19:00 20:20 23:00 03:00 Temp 99.1 100.1 99.9 99.1 100.1 99.9 Pulse 58 62 58 Resp 22 18 18 B/P (MAP) 106/74 (85) 117/57 (77) 110/62 (78) Pulse Ox 94 96 93 O2 Delivery Nasal Cannula Nasal Cannula Nasal Cannula Nasal Cannula O2 Flow Rate 4.0 4.0 4.0 4.0 10/25/19 10/25/19 10/25/19 10/25/19 05:35 06:38 07:00 08:00 Temp 99.5 99.5 Pulse 74 Resp 22 B/P (MAP) 114/60 (78) Pulse Ox 90 O2 Delivery Nasal Cannula Nasal Cannula Nasal Cannula Nasal Cannula O2 Flow Rate 4.0 4.0 4.0 4.0 10/25/19 10/25/19 10:29 11:00 Temp 99.5 99.4 99.5 99.4 Pulse 74 78 Resp 22 18 B/P (MAP) 112/60 (77) 105/61 (76) Pulse Ox 90 92 O2 Delivery Nasal Cannula Nasal Cannula O2 Flow Rate 4.0 4.0 Intake and Output 10/24/19 10/24/19 10/25/19 15:00 23:00 07:00 Intake Total 540 ml 750 ml 50 ml Output Total 150 ml 525 ml Balance 540 ml 600 ml -475 ml NADER DUMONT MD October 25, 2019 16:38
[2019-10-25] MEDS: CHOLECALCIFEROL (VITAMIN D3) 5,000 UNIT CAPSULE PO SCH (17:53)
--- NOTE | 2019-10-25 18:34 | NUR ---
WHILE WALKING SHORT DISTANCE WITH THERAPY AND WEARING O2 THE PT SATS DROPPED INTO 70'S. DR DUMONT NOTIFIED AND PT TO STAY IF SHE WOULD. SPOKE WITH PT AND FAMILY OVER PHONE AND PT AGREED TO STAY ANOTHER NIGHT. O2 TANK IN ROOM TO GO WITH PT AND PT WILL NEED TRANSPORT HOME TOMORROW IF STABLE. FAMILY STATED THAT [employer]2 COMPANY WAS COMING TO THE HOUSE TO SET UP O2.
--- NOTE | 2019-10-25 18:39 | NUR ---
DR DUMONT ALSO NOTIFIED THAT THE PT DID NOT WANT THE IV REINSERTED.
[2019-10-26 03:00] VITALS: BP 99/60
[2019-10-26] MEDS: POTASSIUM CL 20MEQ D5-0.45NACL 1,000 ML IV SCH (04:00)
[2019-10-26] MEDS: ACETAMINOPHEN 325 MG TABLET. PO PRN (06:12)
[2019-10-26] MEDS: LEVOTHYROXINE 75 MCG TABLET PO SCH (06:12)
[2019-10-26 07:00] VITALS: BP 118/61
[2019-10-26] MEDS: VITAMIN B12,B9,B6 COMPLEX 1 TABLET. PO SCH (09:00)
[2019-10-26] MEDS: LACTOBACILLUS RHAMNOSUS GG 1 CAPSULE. PO SCH (09:47)
[2019-10-26] MEDS: ZINC SULFATE 220 MG CAPSULE. PO SCH (09:47)
[2019-10-26] MEDS: guaiFENesin DM 600/30MG 1 TAB TAB.ER.12H PO SCH (09:47)
[2019-10-26] MEDS: BENZONATATE 100 MG CAPSULE. PO SCH ×2 (09:47→13:55)
[2019-10-26] MEDS: ASCORBIC ACID 500 MG TABLET PO SCH (09:47)
[2019-10-26] MEDS: CHOLECALCIFEROL (VITAMIN D3) 5,000 UNIT CAPSULE PO SCH (09:47)
[2019-10-26 11:30] VITALS: BP 114/56
[2019-10-26] MEDS: cefTRIAXone IV Push 1 GM VIAL. IVP SCH (12:00)
--- NOTE | 2019-10-26 16:01 | NUR ---
Discharge Note: [facility] Discharge instructions and discharge home medications reviewed with Patient and a copy given. All questions have been answered and understanding verbalized. The following instructions and handouts were given: patient visit report, medication information, education. Educational handouts were printed in Ivorian for the patient. Patient given information regarding COVID-19 follow-up care. Patient discharged to home with self care via private vehicle. Patient left unit awake, in stable condition, with all personal belongings. Patient left unit with oxygen tank.
== END 2019-10-26 14:45 | disposition home or self-care (01) | DRG 871 ==
LOC: ER 21:37 → 6 SOUTH 10-21 00:59
PROVIDERS: ADMIT Internal Medicine; ATTEND Internal Medicine
DX: A41.9 Sepsis, unspecified organism (principal); J12.89 Other viral pneumonia; J96.01 Acute respiratory failure with hypoxia; U07.1 COVID-19; E44.0 Moderate protein-calorie malnutrition; E66.9 Obesity, unspecified; H04.129 Dry eye syndrome of unspecified lacrimal gland; R74.0 Nonspecific elevation of levels of transaminase and lactic acid dehydrogenase [LDH]; Z68.33 Body mass index [BMI] 33.0-33.9, adult
CPT/HCPCS: 36415; 71045; 80048; 80053; 81001; 81025; 83605; 83880; 84484; 85025; 87040; 87086; 93005; 94760; 96360; J0696; J1650; J3480; J7030; 99285-25; G0378